=== PATIENT | female | born 1965 | race Two or more races ===

== ENCOUNTER 2024-06-26 17:29 | Inpatient (IN) | payer BC, SELFPAY ==
[2024-06-26 17:55] VITALS: BP 142/88; PULSE 91; RESP 18; TEMP 36.9; O2SAT 97; BMI 36.6
--- NOTE | 2024-06-26 17:58 | XR_ITS ---
Examination: Abdomen sonogram, Limited Date and time of exam: June 26, 2024 1926 hours INDICATIONS: Right upper abdominal pain and nausea beginning today Technique: Real-time pandya scale transabdominal sonographic images of the upper abdomen obtained. Findings: Normal gallbladder Normal common bile duct 0.3 cm Pancreatic head 2.8 cm Liver 15.1 cm fatty infiltration Normal hepatopedal portal venous flow Patent IVC IMPRESSION: Normal gallbladder. Fatty liver
--- NOTE | 2024-06-26 17:58 | XR_ITS ---
Examination: CT abdomen and pelvis without contrast. Coronal 3-D reconstructions. Sagittal 2-D reconstructions. Date and time of exam:June 26, 2024 1847 hours INDICATIONS: Epigastric pain beginning one week ago CTDI: vol (mGy): 15.6 DLP: (mGycm): 885 Technique: Axial images of the abdomen have been obtained, 3 mm slice thickness Intravenous contrast material has not been administered. Low dose protocols were performed. One or more of the following dose reduction techniques were used; automated exposure control, adjustment of the mA and/or KV according to patient size, use of iterative reconstruction technique. Findings: No focal liver or splenic lesions No gallstones No pancreatic mass No renal or ureteral calculi, no hydronephrosis Aorta normal size 12 mm fat-containing umbilical hernia Inflamed appendix medial and below the cecum, axial images 170 through 183 Trace free fluid in the pelvis No pelvic abscess Battery intact IMPRESSION: Acute appendicitis with localized perforation No pelvic abscess
--- NOTE | 2024-06-26 17:59 | PD.EDRME ---
Rapid Medical Screening Exam RME Arrival date/time: 06/26/24 17:29 58-year-old female presents to the emergency department for complaint of abdominal pain Chief Complaint: Abdominal Pain Time Seen by Provider: 06/26/24 17:42 Vital signs: Vital Signs Temperature 98.4 F 06/26/24 17:55 Pulse Rate 91 06/26/24 17:55 Respiratory Rate 18 06/26/24 17:55 Blood Pressure 142/88 H 06/26/24 17:55 Pulse Oximetry (%) 97 06/26/24 17:55 Oxygen Delivery Method Room Air 06/26/24 17:55
[2024-06-26 19:11] LABS: Basophils # (Auto) 0.1 Thou/mm3 (0.0-0.2); Basophils % (Auto) 0 % (0-2.5); Eosinophils # (Auto) 0.1 Thou/mm3 (0.0-0.5); Eosinophils % (Auto) 1 % (0-10); Hematocrit 38.6 % (36.0-46.0); Hemoglobin 13.1 g/dL (12.0-16.0); Immature Granulocytes % (Auto) 0 % (0-0); Immature Granulocytes Auto 0.04 Thou/mm3 (0.00-0.00); Lymphocytes # (Auto) 1.9 Thou/mm3 (1.0-4.8); Lymphocytes % (Auto) 15 % (10-50); Mean Corpuscular HGB Conc 33.9 g/dl (31.0-37.0); Mean Corpuscular Hemoglobin 26.8 pg (25.0-35.0); Mean Corpuscular Volume 79 fL (80-100); Monocytes # (Auto) 0.8 Thou/mm3 (0.0-0.8); Monocytes % (Auto) 7 % (0-12); Neutrophils # (Auto) 9.9 Thou/mm3 (1.8-7.7); Neutrophils % (Auto) 77 % (37-80); Nucleated Red Blood Cell % 0 /100 WBC (0); Platelet Count 282 Thou/mm3 (140-440); Red Blood Count 4.89 Miln/mm3 (4.00-5.20); White Blood Count 12.8 Thou/mm3 (3.6-11.0)
[2024-06-26 19:22] LABS: Collection Type, Urine Clean Catch
[2024-06-26 19:31] LABS: Alanine Aminotransferase 12 U/L (10-49); Albumin, Serum 4.4 gm/dL (3.5-5.0); Albumin/Globulin Ratio 1.5 (1.2-2.2); Alkaline Phosphatase 109 U/L (46-116); Anion Gap 11 (7-16); Aspartate Amino Transferase 16 U/L (0-34); BUN/Creatinine Ratio 14 Ratio (12-20); Bilirubin,Total 0.5 mg/dL (0.3-1.2); Blood Urea Nitrogen 17 mg/dL (9-23); Calcium 9.1 mg/dL (8.3-10.6); Calcium (Corrected) 9.1 mg/dL (8.5-10.1); Carbon Dioxide 29.1 mMol/L (20.0-31.0); Chloride 102 mMol/L (98-107); Creatinine (Component) 1.2 mg/dL (0.6-1.3); Estimated Creatinine Clearance 55.7 mL/min (>60); Glucose 109 mg/dL (74-106); Lipase 68 U/L (12-53); Osmolality,Calculated 285 (275-295); Potassium 3.5 mMol/L (3.4-5.1); Sodium 142 mMol/L (136-145); Total Protein 7.4 gm/dL (5.7-8.2); Troponin I < 0.020 ng/mL (0.0-0.045); eGFR 52 See Note
[2024-06-26 19:55] LABS: Bacteria,Urine Rare; Bilirubin,Urine Negative (Negative); Blood,Urine 3+ (Negative); Clarity,Urine Turbid (Clear/Hazy); Color,Urine Yellow (Lt Yel-Yel); Culture Indicated,Urine Not Indicated; Glucose, Urine Negative (Negative); Ketones,Urine Negative (Negative); Leukocyte Esterase,Urine Positive (Negative); Nitrite,Urine Negative (Negative); PH,Urine 7.5 (5.0-7.0); Protein,Urine Trace (Neg - Trace); RBC,Urine 58 /hpf (0-3); Specific Gravity,Urine 1.027 (1.001-1.035); Squamous Epithelial Cell,Urine 18 /hpf (0-5); WBC,Urine 7 /hpf (0-5)
--- NOTE | 2024-06-26 20:16 | PD.EDABDPN ---
ED Abdominal Pain RME/HPI General Chief Complaint: Abdominal Pain Stated complaint: SHARP EPIGASTRIC/ABD PAIN X 1 WK; VOMIT,DIARRHEA Time seen by provider: 06/26/24 17:42 Arrival date/time: 06/26/24 17:29 58-year-old female presents to the ED with a complaint of a 1 week history of abdominal pain that began in the periumbilical area, traveled down to the right lower quadrant and is now tender everywhere in her abdomen primarily in the epigastric area, with associated nausea, vomiting and now constipation. She was seen by her primary care physician at [facility] and diagnosed with food poisoning. She was given nausea medication as well as antidiarrheal medications. She got a little better but is now become worse. She had chills last week but none this week. It hurts to walk. Her last BM was yesterday. Her last oral intake was today around 2:30 PM. Source: patient and family Mode of arrival: ambulatory Limitations: no limitations RME / HPI RME / HPI narrative: 06/26/24 17:29 58-year-old female presents to the emergency department for complaint of abdominal pain Related Data Home Medications ?Medication ?Instructions ?Recorded ?Confirmed atorvastatin 20 mg tablet 20 mg PO QDAY 11/16/22 11/16/22 hydroxyzine HCl 25 mg tablet 25 mg PO QDAY 11/16/22 11/16/22 losartan 100 1 tab PO QDAY 11/16/22 11/16/22 mg-hydrochlorothiazide 25 mg tablet omeprazole 40 mg capsule,delayed 40 mg PO QDAY 11/16/22 11/16/22 release semaglutide 0.25 mg or 0.5 mg (2 0.5 mg subcut QWEEK 11/16/22 11/16/22 mg/3 mL) subcutaneous pen injector (Ozempic) sertraline 25 mg tablet 25 mg PO QDAY 11/16/22 11/16/22 Previous Rx's ?Medication ?Instructions ?Recorded loratadine 10 mg tablet 10 mg PO QDAY #30 tabs 01/22/23 montelukast 10 mg tablet 10 mg PO QDAY #30 tabs 01/22/23 (Singulair) Allergies Allergy/AdvReac Type Severity Reaction Status Date / Time No Known Allergies Allergy Verified 06/26/24 17:31 Review of Systems Review of Systems Systems Reviewed: All systems reviewed, normal except as documented Past Medical History Past Medical History NEUROLOGIC: Negative Neurological Disorders or Seizures CARDIAC: Positive Cardiac Disorders, Hypercholesterolemia and Hypertension; Negative Heart Murmur or Congestive Heart Failure RESPIRATORY: Negative Chronic Obstructive Pulmonary Disease (COPD) GASTROINTESTINAL: Negative Gastrointestinal Disorders GENITOURINARY: Negative Genitourinary Disorders or Renal Disease REPRODUCTIVE: Positive Previous Pregnancies MUSCULOSKELETAL: Negative Musculoskeletal Disorders ENDOCRINE: Positive Endocrine Disorders; Negative Diabetes Mellitus Type 1 or Diabetes Mellitus Type 2 (borderline diabetic) HEMATOLOGIC: Negative Blood Disorders OTHER HISTORY: Positive Chicken Pox; Negative Blood Transfusions, Anesthesia Reactions or Cancer Family History FAMILY HISTORY: Positive Family Cardiac Disorders and Family Cancer Surgical History SURGICAL: Positive Angiogram and Hysterectomy Social History SMOKING STATUS: Never smoker SUBSTANCE USE: does not use ED Exam Narrative Physical exam: Pleasant 58-year-old female, no acute distress, sitting up on gurney. Alert and oriented, lungs are clear, regular rate and rhythm without murmurs. Abdomen reveals hypoactive bowel sounds. She has tenderness to percussion and palpation in all quadrants as well as rebound and guarding. Positive psoas and obturator and positive heeltap. General Limitations: Present no limitations General appearance: Present alert and in no apparent distress Head Head exam: Present atraumatic and normal inspection Eye Eye exam: Present normal appearance; Absent scleral icterus or conjunctival injection ENT ENT exam: Present normal exam Neck Neck exam: Present normal inspection Chest Chest inspection: Present normal inspection and symmetric chest wall rise Respiratory Respiratory exam: Present normal lung sounds bilaterally; Absent respiratory distress Cardiovascular Cardiovascular exam: Present regular rate, normal rhythm and normal heart sounds; Absent systolic murmur Abdominal Exam Abdominal exam: Present soft, tenderness, guarding, rebound, hypoactive bowel sounds, psoas sign, obturator sign and heel tap sign; Absent distention or rigidity Abdominal tenderness: Present RUQ, RLQ, LUQ, LLQ, diffuse and moderate Rectal Exam Rectal exam: Present deferred Extremities Exam Extremities exam: Present normal inspection and full ROM Back Exam Back exam: Present normal inspection and full ROM; Absent CVA tenderness (R) or CVA tenderness (L) Neurological Exam Neurological exam: Present alert and oriented X3 Psychiatric Psychiatric exam: Present normal affect and normal mood Skin Skin exam: Present warm, dry, intact and normal color Course Orders Category Date Time Status CT abdomen pelvis wo con Stat Exams 06/26/24 17:58 Completed US gall bladder Stat Exams 06/26/24 17:58 Taken CBC Stat Lab 06/26/24 18:38 Completed Comprehensive Metabolic Panel Stat Lab 06/26/24 18:38 Completed Lipase Stat Lab 06/26/24 18:38 Completed Troponin I Stat Lab 06/26/24 18:38 Completed UA, C/S IF [Urinalysis, C/S if Indicated] Stat Lab 06/26/24 19:04 Completed Vital Signs Vital signs: Vital Signs Temperature 98.4 F 06/26/24 17:55 Pulse Rate 91 06/26/24 17:55 Respiratory Rate 18 06/26/24 17:55 Blood Pressure 142/88 H 06/26/24 17:55 Pulse Oximetry (%) 97 06/26/24 17:55 Oxygen Delivery Method Room Air 06/26/24 17:55 Discharge Plan Prescriptions/Referrals Prescriptions/Med Rec: No Action atorvastatin 20 mg tablet 20 mg PO QDAY Patient Comments: TAKE 1 TABLET BY MOUTH ONCE DAILY FOR 90 DAYS omeprazole 40 mg capsule,delayed release(DR/EC) 40 mg PO QDAY Patient Comments: TAKE 1 CAPSULE BY MOUTH ONCE DAILY 30 MINUTES BEFORE MORNING MEAL losartan-hydrochlorothiazide 100-25 mg tablet 1 tab PO QDAY Patient Comments: TAKE 1 TABLET BY MOUTH ONCE DAILY sertraline 25 mg tablet 25 mg PO QDAY Patient Comments: TAKE 1 TABLET BY MOUTH ONCE DAILY hydroxyzine HCl 25 mg tablet 25 mg PO QDAY Patient Comments: TAKE 1 TABLET BY MOUTH ONCE DAILY AT BEDTIME NEEDED Ozempic 0.25 mg or 0.5 mg (2 mg/3 mL) pen injector 0.5 mg SUBCUT QWEEK Patient Comments: INJECT 0.5 MG SUBCUTANEOUSLY ONCE A WEEK loratadine 10 mg tablet 10 mg PO QDAY Qty: 30 0RF montelukast [Singulair] 10 mg tablet 10 mg PO QDAY Qty: 30 0RF Referrals: Wilfrid Cole MD [Primary Care Provider] - In 1 week Patient/Caregiver Discharge Instructions Print Language: Lithuanian
[2024-06-26 21:04] VITALS: BP 174/83; PULSE 71; RESP 17; TEMP 36.9; O2SAT 96
[2024-06-26] MEDS: SODIUM CHLORIDE 0.9% 1000 ML 1,000 ML 125 ML IV (21:06)
[2024-06-26 21:37] LABS: Lactate (Lactic Acid) 0.7 mMol/L (0.4-2.0)
[2024-06-26] MEDS: metroNIDAZOLE/NS 500 MG IVPB 500 MG/100 ML BAG 200 MG IV (21:42)
--- NOTE | 2024-06-26 21:45 | PC.NURSE ---
Dr. Delgadillo at bedside speaking to patient.
--- NOTE | 2024-06-26 21:45 | ESHP_ITS ---
<Statement entered by Angelo Villavicencio MD - 06/26/24 23:36> I have discussed and was present for the essential components of the history, physical examination, diagnosis, and treatment plan with the resident. I agree with the patient's care as documented by the resident and amended herein by me. Angelo Villavicencio MD FACP. Documentation for date of: 06/26/24 HPI History of Present Illness History of present illness: 58 years old female patient with significant medical history for GERD, prediabetes, hypertension, depression and anxiety came into ED for abdominal pain. Pain started x 1 week ago with origin of periumbilical area, over time extended to right lower quadrant pain and now epigastric region. Patient also endorsed chills, nausea, vomiting and diarrhea. When symptoms initially started patient went to PCP at which point she was diagnosed with gastritis and was sent home with antiemesis and antidiarrheal medication. Over time pain intensity has increased now patient also experiencing pain while walking. Per patient last episode of chills and nausea/vomiting was x 4 days ago. Last bowel movement was yesterday and last p.o. intake was this afternoon. In ED vitals were significant for BP 142/88. Labs were significant for WBC 12.8, [employer] 1.2, EGFR 52, glucose 109, lipase 68, CRP/lactic acid/procalcitonin are pending. Urinalysis indicated pH of 7.5, urine RBC 58, urine WBC 7, leukocyte esterase positive and rare bacteria. Gallbladder ultrasound was unremarkable. Abdomen/pelvis CT showed acute appendicitis with localized perforation. Patient recieved Rocephin and Metronidazole in ED. General surgeon Dr. Delgadillo was consulted, patient was switched to Zosyn per recc. Patient will be admitted for further management of appendicitis. Medical Hx: GERD, prediabetes, hypertension, anxiety Medications (need reconciliation): atorvastatin, hydroxyzine, loratadine, losartan-hctz, omeprazole, ozempic, sertraline Surgical Hx: total hysterectomy Family Hx: daughter breast cancer, mother osteosarcoma Allergies: NKDA Code Status: Full Code Review of Systems Review of Systems Systems Reviewed: All systems reviewed, normal except as documented Exam Vital Signs Temp Pulse Resp BP Pulse Ox O2 Del Method 98.5 F 71 17 174/83 H 96 Room Air 06/26/24 21:04 06/26/24 21:04 06/26/24 21:04 06/26/24 21:04 06/26/24 21:04 06/26/24 21:04 Narrative Exam Constitutional: well-developed, well-nourished, in mild distress, lying in bed HEENT: NCAT, EOMI, reactive round pupils b/l, patent nares b/l, moist mucous membranes Lung: CTAB, no wheezing, no rhonchi Heart: Regular S1S2, no murmurs, gallops, or rubs Abdomen: Soft, non-distended, RLQ and epigastric pain on palpation, Mcburney's point+, bowel sounds present Extremities: No cyanosis, clubbing, or edema, LE pulses present b/l Neurologic: No focal sensory or motor deficits noted, AOx3, appropriate affect Skin: Warm, dry, no lesions or rashes noted Results: Labs 06/26/24 18:38 06/26/24 18:38 Labs: Short CBC 06/26/24 Range/Units 18:38 WBC 12.8 H (3.6-11.0) Thou/mm3 Hgb 13.1 (12.0-16.0) g/dL Hct 38.6 (36.0-46.0) % Plt Count 282 (140-440) Thou/mm3 BMP 06/26/24 18:38 Sodium 142 Potassium 3.5 Chloride 102 Carbon Dioxide 29.1 BUN 17 Creatinine 1.2 Glucose 109 H Calcium 9.1 Cardiac Enzymes 06/26/24 Range/Units 18:38 Troponin I < 0.020 (0.0-0.045) ng/mL Liver Function 06/26/24 Range/Units 18:38 Total Bilirubin 0.5 (0.3-1.2) mg/dL AST 16 (0-34) U/L ALT 12 (10-49) U/L Alkaline Phosphatase 109 (46-116) U/L Albumin 4.4 (3.5-5.0) gm/dL Urine 06/26/24 Range/Units 19:04 Urine Color Yellow (Lt Yel-Yel) Urine Clarity Turbid A (Clear/Hazy) Urine pH 7.5 H (5.0-7.0) Ur Specific [place] 1.027 (1.001-1.035) Urine Protein Trace (Neg - Trace) Urine Glucose (UA) Negative (Negative) Quality Measures Quality Measures VTE prophylaxis Medications Home Medications and Allergies Home Medications ?Medication ?Instructions ?Recorded ?Confirmed ?Type atorvastatin 20 mg tablet 20 mg PO QDAY 11/16/2211/16 History hydroxyzine HCl 25 mg tablet 25 mg PO QDAY 11/16/22 History losartan 100 1 tab PO QDAY 11/16/2211/16 History mg-hydrochlorothiazide 25 mg tablet omeprazole 40 mg capsule,delayed 40 mg PO QDAY 3 11/16/22 History release semaglutide 0.25 mg or 0.5 mg (2 0.5 mg subcut QWEEK 1 11/16/22 History mg/3 mL) subcutaneous pen injector (Ozempic) sertraline 25 mg tablet 25 mg PO QDAY 11/16/2211/16 History Allergies Allergy/AdvReac Type Severity Reaction Status Date / Time No Known Allergies Allergy Verified 06/26/24 17:31 Visit Medications Acetaminophen (Acetaminophen 325 Mg Tablet) 650 mg PO Q6H PRN PRN Reason: Fever >101.5 Stop: 07/26/24 21:20 Albuterol/Ipratropium (Albuterol/Ipratropium (Duoneb) Rt Wendy 3 Ml Nebu) 3 ml INH Q6HRRT PRN PRN Reason: wheezing Stop: 07/27/24 00:59 Sodium Chloride (Ns) 1,000 mls @ 125 mls/hr IV .Q8H ONE Stop: 06/27/24 04:20 Last Admin: 06/26/24 21:06 Dose: 125 mls/hr Piperacillin/Tazobactam/Dextrose (Zosyn) 50 mls @ 100 mls/hr IV Q8HR NEO Stop: 07/03/24 21:43 Ondansetron HCl (Ondansetron Inj 2 Mg/Ml Inj 2 Ml) 4 mg IV Q6H PRN; Protocol PRN Reason: NAUSEA OR VOMITING Stop: 07/26/24 21:20 Discontinued Medications Ceftriaxone Sodium 2 gm/ (Sodium Chloride) 50 mls @ 100 mls/hr IV X1 ONE Stop: 06/26/24 20:54 Metronidazole (Flagyl 500 Mg Iv) 500 mg in 100 mls @ 200 mls/hr IV Q8HR NEO Stop: 07/03/24 20:24 Last Admin: 06/26/24 21:42 Dose: 200 mls/hr Ceftriaxone Sodium 2 gm/ (Sodium Chloride) 50 mls @ 100 mls/hr IV QDAY [facility] Stop: 07/04/24 08:59 Assessment & Plan Plan 58 years old female patient with significant medical history for GERD, prediabetes, hypertension, depression and anxiety came into ED for abdominal pain. Pain started x 1 week ago with origin of periumbilical area, over time extended to right lower quadrant pain and now epigastric region. Patient also endorsed chills, nausea, vomiting and diarrhea. Abdomen/pelvis CT showed acute appendicitis with localized perforation. General surgeon Dr. Delgadillo was consulted, patient will be admitted for further management of appendicitis. #Appendicitis with local perforation Patient with x 1 week of abdominal pain with associated symptoms of chills, nausea, vomiting Lab admission positive for leukocytosis Abdomen/pelvis CT indicative of appendicitis with local perforation Plan: -Admit to med-tele -Toradol for pain -IV antibiotics Zosyn started -Tylenol for fever as needed -N.p.o. -Maintenance IVF NS at 125 cc/hr -General surgeon Dr. Delgadillo consulted, recommendations are greatly appreciated # Hypertension Patient on home med losartan-HCTZ Plan: -Start losartan 100 mg daily -Start hydrochlorothiazide 25 mg daily -As needed hydralazine for SBP >170 #GERD Plan: -Pantoprazole 40 mg daily #Prediabetes Patient on home med Ozempic Plan: -Follow-up A1c -Consider starting SSI #Depression #Anxiety Patient on home med sertraline and hydroxyzine Plan: -Start home meds after reconciliation Health Maintenance Dispo: Patient admitted for appendicitis with local perforation, general surgeon consulted Diet: N.p.o. as possible surgery for DVT/PPx: SVC GI ppx: Pantoprazole 40 daily Lines: PIV Code Status: Full code This patient care was discussed with my attending Dr. Saud Macias MD PGY-2 Disclaimer: Minor errors in sharemilker may be present since this note was dictated by speech recognition software.
[2024-06-26 21:48] VITALS: RESP 96
--- NOTE | 2024-06-26 21:52 | PD.SURCONS ---
HPI Consult details Consult date: 06/26/24 Reason for consultation narrative: Abdominal pain of 1 week duration associated with nausea and vomiting and diarrhea no fever or chills History of present illness: Patient was experiencing this problem for 1 week and today the pain increased therefore she came to the emergency room. She has a history of diabetes hypertension hyperlipidemia Meds Home Medications and Allergies Home Medications ?Medication ?Instructions ?Recorded ?Confirmed ?Type atorvastatin 20 mg tablet 20 mg PO QDAY 11/16/22 11/16/22 History hydroxyzine HCl 25 mg tablet 25 mg PO QDAY 11/16/22 11/16/22 History losartan 100 1 tab PO QDAY 11/16/22 11/16/22 History mg-hydrochlorothiazide 25 mg tablet omeprazole 40 mg capsule,delayed 40 mg PO QDAY 11/16/22 11/16/22 History release semaglutide 0.25 mg or 0.5 mg (2 0.5 mg subcut QWEEK 11/16/22 11/16/22 History mg/3 mL) subcutaneous pen injector (MoveEZ) sertraline 25 mg tablet 25 mg PO QDAY 11/16/22 11/16/22 History Allergies Allergy/AdvReac Type Severity Reaction Status Date / Time No Known Allergies Allergy Verified 06/26/24 17:31 Exam Vital Signs Temp Pulse Resp BP Pulse Ox O2 Del Method 98.5 F 71 17 174/83 H 96 Room Air 06/26/24 21:04 06/26/24 21:04 06/26/24 21:04 06/26/24 21:04 06/26/24 21:04 06/26/24 21:04 Narrative Exam Examination revealed normal vital signs. Patient is slightly obese Routine Abdominal Exam Comments: Abdominal examination shows tenderness over the McBurney's point as well as in the epigastric region Results Results: Laboratory Laboratory Narrative: WBC is mildly elevated Results: Imaging Imaging narrative: CT scan shows acute appendicitis with possible perforation that is localized Assessment & Plan Additional Assessment Additional comments: Impression: Delayed appendicitis Diabetes Hypertension Plan Plan: We will start her with antibiotics and treat her nonoperatively. If she improves we can discharge her after few days of antibiotics. Otherwise she will require laparoscopic appendectomy. Thank you very much
[2024-06-26 21:53] LABS: Prothrombin Time 11.2 Seconds (9.0-12.2)
[2024-06-26] MEDS: KETOROLAC INJ 30 MG/ML VIAL IVP (21:57)
[2024-06-26 22:44] VITALS: BP 152/83; PULSE 67; RESP 18; TEMP 37; O2SAT 95
[2024-06-26 22:46] VITALS: PULSE 69; RESP 21; RESP 95; O2SAT 95
[2024-06-26] MEDS: PIPER/TAZO 3.375 GM PREMIX 3.375 GM/50 ML BAG IV (22:46)
[2024-06-26 23:06] LABS: Procalcitonin 0.13 ng/ml (0.0-0.49)
[2024-06-27] VITALS (10 sets, daily range): BP systolic 119–147; BP diastolic 56–85; PULSE 61–104; RESP 17–97; TEMP 36.1–36.5; O2SAT 93–97; BMI 36.3
--- NOTE | 2024-06-27 03:00 | PC.NURSE ---
Report called to JOSIAS Neal in Med/Surg.
--- NOTE | 2024-06-27 04:00 | PC.NURSE ---
Pt and spouse noted they are not certain of doses and frequencies of the home medications being taken. Spouse noted he would bring them in later today. Will relay info to day RN to f/u with reconciliation.
[2024-06-27 05:42] LABS: Basophils % (Auto) 0 % (0-2.5); Eosinophils # (Auto) 0.1 Thou/mm3 (0.0-0.5); Eosinophils % (Auto) 1 % (0-10); Immature Granulocytes % (Auto) 0 % (0-0); Immature Granulocytes Auto 0.05 Thou/mm3 (0.00-0.00); Lymphocytes # (Auto) 1.8 Thou/mm3 (1.0-4.8); Lymphocytes % (Auto) 16 % (10-50); Mean Corpuscular HGB Conc 33.3 g/dl (31.0-37.0); Mean Corpuscular Hemoglobin 26.4 pg (25.0-35.0); Mean Corpuscular Volume 79 fL (80-100); Monocytes # (Auto) 0.7 Thou/mm3 (0.0-0.8); Monocytes % (Auto) 6 % (0-12); Neutrophils # (Auto) 8.4 Thou/mm3 (1.8-7.7); Neutrophils % (Auto) 76 % (37-80); Nucleated Red Blood Cell % 0 /100 WBC (0); Platelet Count 269 Thou/mm3 (140-440); RDW Standard Deviation 40.6 fL (36.4-46.3); Red Blood Count 4.92 Miln/mm3 (4.00-5.20); White Blood Count 11.1 Thou/mm3 (3.6-11.0)
[2024-06-27] MEDS: KETOROLAC INJ 30 MG/ML VIAL IVP (05:47)
[2024-06-27] MEDS: PIPER/TAZO 3.375 GM PREMIX 3.375 GM/50 ML BAG IV ×2 (06:06→21:09)
[2024-06-27 06:15] LABS: Alanine Aminotransferase 12 U/L (10-49); Albumin, Serum 4.2 gm/dL (3.5-5.0); Albumin/Globulin Ratio 1.4 (1.2-2.2); Alkaline Phosphatase 98 U/L (46-116); Anion Gap 10 (7-16); Aspartate Amino Transferase 16 U/L (0-34); BUN/Creatinine Ratio 16 Ratio (12-20); Bilirubin,Total 0.7 mg/dL (0.3-1.2); Blood Urea Nitrogen 14 mg/dL (9-23); Calcium 9.1 mg/dL (8.3-10.6); Calcium (Corrected) 9.1 mg/dL (8.5-10.1); Carbon Dioxide 28.2 mMol/L (20.0-31.0); Chloride 102 mMol/L (98-107); Creatinine (Component) 0.9 mg/dL (0.6-1.3); Estimated Creatinine Clearance 73.8 mL/min (>60); Globulin 2.9 gm/dL (2.3-3.5); Glucose 100 mg/dL (74-106); Magnesium 2.2 mg/dL (1.6-2.6); Osmolality,Calculated 279 (275-295); Phosphorous 4.2 mg/dL (2.4-5.1); Potassium 3.1 mMol/L (3.4-5.1); Sodium 140 mMol/L (136-145); Total Protein 7.1 gm/dL (5.7-8.2); eGFR > 60 See Note
[2024-06-27] MEDS: hydroCHLOROthiazide 12.5 MG CAPSULE 25 MG PO (08:15)
[2024-06-27] MEDS: PANTOPRAZOLE 40 MG TABLET PO (08:15)
[2024-06-27] MEDS: POTASSIUM CHLORIDE 20 mEq TABCR 40 MEQ PO (08:16)
[2024-06-27] MEDS: LOSARTAN POTASSIUM 25 MG TABLET 100 MG PO (08:16)
[2024-06-27 08:46] LABS: Glucose Estimated Average 105 mg/dL (80-131); Hemoglobin A1C 5.3 % Hgb (4.8-6.0)
[2024-06-27] MEDS: HYDROcodone/APAP 5/325 TABLET 1 TAB PO ×2 (10:40→21:07)
--- NOTE | 2024-06-27 11:21 | PD.RESPRO ---
Documentation for date of: 06/27/24 Subjective Subjective Interval history: Patient was seen examined at bedside this morning. No acute overnight events. General surgery saw the patient and decided that no surgery was indicated at this time unless no improvement. Exam Vital Signs Temp Pulse Resp BP Pulse Ox O2 Del Method FiO2 97.3 F 65 17 128/76 93 L Room Air 77 06/27/24 08:00 06/27/24 08:16 06/27/24 08:00 06/27/24 08:16 06/27/24 08:00 06/27/24 08:00 06/27/24 07:20 Narrative Exam General: A/O x3, no acute distress, well-nourished, well-developed Eyes: PERRL, EOMI. Anicteric, vision grossly intact. Ears: No ear pain, no ear discharge, Hearing grossly intact. Nose: No nasal discharge. Mouth/Throat: Moist mucous membranes, no redness, no lesions. Neck: Neck supple, non-tender, no cervical lymphadenopathy. Lungs: Clear JEFE to auscultation and percussion, No accessory muscle use. Cardio: Normal S1/S2, regular rhythm, no murmurs, no JVD or carotid bruits. Abdomen: Soft, tender in RLQ with palpation, no palpable masses, peristalsis present, no guarding or rebound. Extremities: Symmetrical, no significant deformities, no peripheral edema , non-tender, peripheral pulses presents. Skin: No rashes, no lesions, warm to touch. Neuro: No focal neurological deficits. motor and sensory intact Psych: Cooperative, appropriate mood and effect. Objective Labs 06/27/24 05:14 06/27/24 05:14 Labs: Laboratory Results - last 24 hr 06/26/24 06/26/24 06/26/24 18:38 19:04 21:23 WBC 12.8 H RBC 4.89 Hgb 13.1 Hct 38.6 MCV 79 L MCH 26.8 MCHC 33.9 RDW Std Deviation 41.0 Plt Count 282 Neut % (Auto) 77 Lymph % (Auto) 15 George % (Auto) 7 Eos % (Auto) 1 Baso % (Auto) 0 Neut # (Auto) 9.9 H Lymph # (Auto) 1.9 George # (Auto) 0.8 Eos # (Auto) 0.1 Baso # (Auto) 0.1 Immature Gran # (Auto) 0.04 H Absolute Nucleated RBC 0.00 Immature Gran % 0 Nucleated RBC % 0 PT 11.2 INR 1.0 Sodium 142 Potassium 3.5 Chloride 102 Carbon Dioxide 29.1 Anion Gap 11 BUN 17 Creatinine 1.2 Estim Creat Clear Calc 55.7 L eGFR 52 L BUN/Creatinine Ratio 14 [address]ucose [address] Glu mg/dL Hemoglobin A1c Calculated Osmolality 285 Lactic Acid 0.7 Calcium 9.1 Corrected Calcium 9.1 Phosphorus Magnesium Total Bilirubin 0.5 AST 16 ALT 12 Alkaline Phosphatase 109 Troponin I < 0.020 C-Reactive Prot, Quant 3.0 H Total Protein 7.4 Albumin 4.4 Globulin 3.0 Albumin/Globulin Ratio 1.5 Lipase 68 H Procalcitonin 0.13 Ur Collection Type Clean Catch Urine Color Yellow Urine Clarity Turbid A Urine pH 7.5 H Ur Specific [place] 1.027 Urine Protein Trace Urine Glucose (UA) Negative Urine Ketones Negative Urine Blood 3+ A Urine Nitrite Negative Urine Bilirubin Negative Urine Urobilinogen (Auto) 8.0 Ur Leukocyte Esterase Positive Urine RBC 58 H Urine WBC 7 H Ur Squamous Epith Cells 18 H Urine Bacteria Rare Ur Culture Indicated? Not Indicated 06/27/24 05:14 WBC 11.1 H RBC 4.92 Hgb 13.0 Hct 39.0 MCV 79 L MCH 26.4 MCHC 33.3 RDW Std Deviation 40.6 Plt Count 269 Neut % (Auto) 76 Lymph % (Auto) 16 George % (Auto) 6 Eos % (Auto) 1 Baso % (Auto) 0 Neut # (Auto) 8.4 H Lymph # (Auto) 1.8 George # (Auto) 0.7 Eos # (Auto) 0.1 Baso # (Auto) 0.0 Immature Gran # (Auto) 0.05 H Absolute Nucleated RBC 0.00 Immature Gran % 0 Nucleated RBC % 0 PT INR Sodium 140 Potassium 3.1 L Chloride 102 Carbon Dioxide 28.2 Anion Gap 10 BUN 14 Creatinine 0.9 Estim Creat Clear Calc 73.8 eGFR > 60 BUN/Creatinine Ratio [address] Glu mg/dL 105 Hemoglobin A1c 5.3 Calculated Osmolality 279 Lactic Acid Calcium 9.1 Corrected Calcium 9.1 Phosphorus 4.2 Magnesium 2.2 Total Bilirubin 0.7 AST 16 ALT 12 Alkaline Phosphatase 98 Troponin I C-Reactive Prot, Quant Total Protein 7.1 Albumin 4.2 Globulin 2.9 Albumin/Globulin Ratio 1.4 Lipase Procalcitonin Ur Collection Type Urine Color Urine Clarity Urine pH Ur Specific [place] Urine Protein Urine Glucose (UA) Urine Ketones Urine Blood Urine Nitrite Urine Bilirubin Urine Urobilinogen (Auto) Ur Leukocyte Esterase Urine RBC Urine WBC Ur Squamous Epith Cells Urine Bacteria Ur Culture Indicated? Quality Measures Quality Measures VTE prophylaxis Assessment & Plan Assessment Current Active Medications: Generic Name Dose Route Start Last Admin Trade Name Freq PRN Reason Stop Dose Admin Acetaminophen 650 mg 06/27/24 10:01 Acetaminophen 325 Mg Tablet PO 07/26/24 21:20 Q6H PRN pain 1-3 and Fever >100.4 Hydrocodone Bitart/Acetaminophen 1 tab 06/27/24 10:01 06/27/24 10:40 Hydrocodone/Apap 5/325 Tablet PO 07/02/24 10:00 1 tab Q6HR PRN Administration PAIN SCALE 4-10(Mod-Sev Albuterol/Ipratropium 3 ml 06/26/24 21:21 Albuterol/Ipratropium (Duoneb) Rt Wendy 3 Ml Nebu INH 07/27/24 00:59 Q6HRRT PRN wheezing Hydrochlorothiazide 25 mg 06/27/24 09:00 06/27/24 08:15 Hydrochlorothiazide 12.5 Mg Capsule PO 07/27/24 08:59 25 mg QDAY NEO Administration Piperacillin/Tazobactam/Dextrose 3.375 gm in 50 mls @ 12.5 mls/hr 06/27/24 07:00 06/27/24 06:06 Zosyn IV 07/04/24 06:59 12.5 mls/hr Q8HR NEO Administration Losartan Potassium 100 mg 06/27/24 09:00 06/27/24 08:16 Losartan Potassium 25 Mg Tablet PO 07/27/24 08:59 100 mg QDAY NEO Administration Ondansetron HCl 4 mg 06/26/24 21:21 Ondansetron Inj 2 Mg/Ml Inj 2 Ml IV 07/26/24 21:20 Q6H PRN NAUSEA OR VOMITING Protocol Pantoprazole Sodium 40 mg 06/27/24 09:00 06/27/24 08:15 Pantoprazole 40 Mg Tablet PO 07/27/24 08:59 40 mg QDAY NEO Administration Plan 58-year-old female with past medical history of hypertension, prediabetes, GERD, depression, anxiety was admitted to the hospital on 06/26/2024 due to acute appendicitis with local perforation. #Appendicitis with local perforation Patient had pain for around 1 week prior to coming to the ED. Abdomen/pelvis CT showed appendicitis with local perforation WBC downtrending and no spikes in fever No surgery as of now as per general surgery Plan: Will continue with IV Zosyn for now Pain management with [facility]. General Surgery consulted, appreciate recommendations #Hypokalemia Potassium 3.1 today Plan: 40 mEq x 1 Will replete as necessary #Hx of hypertension and hyperlipidemia Continue hydrochlorothiazide 25 mg daily and losartan 100 mg daily Continue atorvastatin 20 mg at bedtime #Hx of GERD Continue pantoprazole 40 mg #Hx of prediabetes A1c 5.3 No need for ISS #Hx of depression and anxiety Continue hydroxyzine 25 mg at bedtime and sertraline 25 mg at bedtime Disposition: Patient admitted to telemetry. Diet: carb consistent GI prophylaxis: protonix DVT prophylaxis: SCDs Code: Full Case disclosed with Attending Dr. Rupesh Barcenas PGY1 Attending Provider Attestation/Addendum I attest that I was physically present for the evaluation, physical examination, lab and imaging review of the patient with the residents. I discussed the case with the residents and agree with the findings and plans of care as documented above. At bedside today, patient states she is feeling much better. Her pain has been well-controlled with analgesics. Tolerating diet well. Vital signs have been stable, lab results show improving WBC at 11.1 today. Noted to have potassium of 3.1, repleted accordingly. Continues to be on IV Zosyn, awaiting culture results. General surgery has been following closely, recommended conservative treatment, appreciate recommendations. Kamran Goddard MD
--- NOTE | 2024-06-27 15:14 | PC.SS ---
Patient Noy Sheets is a 58 Year old female admitted for Appendicitis. SS introduced and role. Patient reports she lives at home with her Tripp Sheets who she reports is her surrogate decision maker [phone]. Patient reports that prior to admission she was able to ambulate without any DME. Patient is able to perform all ADL's independently. Choice of pharmacy is [facility]. PCP is Wilfrid Cole. At time of discharge patient will return back home. will provide transportation. Discharge Plan: Home Next of kin: , Tripp Sheets
--- NOTE | 2024-06-27 16:40 | PD.SURPROG ---
Documentation for date of: 06/27/24 Subjective Subjective Brief History: Patient was experiencing this problem for 1 week and today the pain increased therefore she came to the emergency room. She has a history of diabetes hypertension hyperlipidemia Narrative: The patient is comfortable today compared to yesterday. She received 1 dose of Toradol. She is tolerating regular diet Exam Vital Signs Temp Pulse Resp BP Pulse Ox O2 Del Method FiO2 97.1 F 104 H 18 119/76 94 L Room Air 77 06/27/24 12:00 06/27/24 16:00 06/27/24 12:00 06/27/24 12:00 06/27/24 12:00 06/27/24 12:00 06/27/24 07:20 Her vital signs are normal Routine Abdominal Exam Comments: Abdominal examination shows less tenderness Results Results: Laboratory Laboratory Narrative: Laboratory results show slight improvement Assessment & Plan Assessment Additional comments: Impression: Perforated appendicitis responding to antibiotic therapy Plan Plan: We would defer surgery at this time continue antibiotic therapy
[2024-06-27] MEDS: ATORVASTATIN CALCIUM 20 MG TABLET PO (21:00)
[2024-06-27] MEDS: SERTRALINE HCL 25 MG TABLET PO (21:00)
[2024-06-27] MEDS: hydrOXYzine HCL 25 MG TABLET PO (21:00)
[2024-06-28] VITALS (13 sets, daily range): BP systolic 110–148; BP diastolic 29–82; PULSE 56–84; RESP 16–97; TEMP 36.2–36.4; O2SAT 94–98
[2024-06-28] MEDS: PIPER/TAZO 3.375 GM PREMIX 3.375 GM/50 ML BAG IV ×3 (05:28→21:42)
[2024-06-28 06:00] LABS: Basophils # (Auto) 0.1 Thou/mm3 (0.0-0.2); Basophils % (Auto) 1 % (0-2.5); Eosinophils # (Auto) 0.3 Thou/mm3 (0.0-0.5); Eosinophils % (Auto) 4 % (0-10); Hematocrit 35.2 % (36.0-46.0); Immature Granulocytes % (Auto) 0 % (0-0); Immature Granulocytes Auto 0.03 Thou/mm3 (0.00-0.00); Lymphocytes # (Auto) 1.8 Thou/mm3 (1.0-4.8); Lymphocytes % (Auto) 22 % (10-50); Mean Corpuscular HGB Conc 34.1 g/dl (31.0-37.0); Mean Corpuscular Hemoglobin 26.8 pg (25.0-35.0); Mean Corpuscular Volume 79 fL (80-100); Monocytes # (Auto) 0.6 Thou/mm3 (0.0-0.8); Monocytes % (Auto) 7 % (0-12); Neutrophils # (Auto) 5.6 Thou/mm3 (1.8-7.7); Neutrophils % (Auto) 67 % (37-80); Nucleated Red Blood Cell % 0 /100 WBC (0); Platelet Count 240 Thou/mm3 (140-440); RDW Standard Deviation 40.5 fL (36.4-46.3); Red Blood Count 4.47 Miln/mm3 (4.00-5.20); White Blood Count 8.4 Thou/mm3 (3.6-11.0)
[2024-06-28 06:37] LABS: Alanine Aminotransferase 11 U/L (10-49); Albumin, Serum 3.8 gm/dL (3.5-5.0); Albumin/Globulin Ratio 1.5 (1.2-2.2); Alkaline Phosphatase 92 U/L (46-116); Anion Gap 8 (7-16); Aspartate Amino Transferase 14 U/L (0-34); BUN/Creatinine Ratio 19 Ratio (12-20); Bilirubin,Total 0.5 mg/dL (0.3-1.2); Blood Urea Nitrogen 17 mg/dL (9-23); Calcium 8.6 mg/dL (8.3-10.6); Calcium (Corrected) 8.8 mg/dL (8.5-10.1); Carbon Dioxide 26.9 mMol/L (20.0-31.0); Chloride 108 mMol/L (98-107); Creatinine (Component) 0.9 mg/dL (0.6-1.3); Estimated Creatinine Clearance 73.8 mL/min (>60); Globulin 2.5 gm/dL (2.3-3.5); Glucose 102 mg/dL (74-106); Magnesium 2.1 mg/dL (1.6-2.6); Osmolality,Calculated 286 (275-295); Phosphorous 4.1 mg/dL (2.4-5.1); Potassium 3.7 mMol/L (3.4-5.1); Sodium 143 mMol/L (136-145); Total Protein 6.3 gm/dL (5.7-8.2); eGFR > 60 See Note
[2024-06-28] MEDS: hydroCHLOROthiazide 12.5 MG CAPSULE 25 MG PO (08:39)
[2024-06-28] MEDS: PANTOPRAZOLE 40 MG TABLET PO (08:39)
[2024-06-28] MEDS: POTASSIUM CHLORIDE 20 mEq TABCR PO (08:40)
[2024-06-28] MEDS: HYDROcodone/APAP 5/325 TABLET 1 TAB PO (08:40)
[2024-06-28] MEDS: LOSARTAN POTASSIUM 25 MG TABLET 100 MG PO (08:41)
--- NOTE | 2024-06-28 10:14 | PD.RESPRO ---
Documentation for date of: 06/28/24 Subjective Subjective Interval history: Patient was seen and examined at bedside this morning. WBCs have been downtrending and she has not spiked any fevers. General surgery stated that they would like to keep the patient for IV antibiotics. Patient did mention that she has been having some episode of diarrhea and today she only had 2, but no abdominal pain. Will continue to monitor. Exam Vital Signs Temp Pulse Resp BP Pulse Ox O2 Del Method FiO2 97.4 F 84 18 131/79 H 97 Room Air 84 06/28/24 07:31 06/28/24 08:41 06/28/24 07:37 06/28/24 08:41 06/28/24 07:37 06/28/24 07:31 06/28/24 07:22 Narrative Exam General: A/O x3, no acute distress, well-nourished, well-developed Eyes: PERRL, EOMI. Anicteric, vision grossly intact. Ears: No ear pain, no ear discharge, Hearing grossly intact. Nose: No nasal discharge. Mouth/Throat: Moist mucous membranes, no redness, no lesions. Neck: Neck supple, non-tender, no cervical lymphadenopathy. Lungs: Clear JEFE to auscultation and percussion, No accessory muscle use. Cardio: Normal S1/S2, regular rhythm, no murmurs, no JVD or carotid bruits. Abdomen: Soft, tender in RLQ with deep palpation, no palpable masses, peristalsis present, no guarding or rebound. Extremities: Symmetrical, no significant deformities, no peripheral edema , non-tender, peripheral pulses presents. Skin: No rashes, no lesions, warm to touch. Neuro: No focal neurological deficits. motor and sensory intact Psych: Cooperative, appropriate mood and effect. Objective Labs 06/28/24 05:08 06/28/24 05:08 Labs: Laboratory Results - last 24 hr 06/28/24 05:08 WBC 8.4 RBC 4.47 Hgb 12.0 Hct 35.2 L MCV 79 L MCH 26.8 MCHC 34.1 RDW Std Deviation 40.5 Plt Count 240 Neut % (Auto) 67 Lymph % (Auto) 22 [place] % (Auto) 7 Eos % (Auto) 4 Baso % (Auto) 1 Neut # (Auto) 5.6 Lymph # (Auto) 1.8 [place] # (Auto) 0.6 Eos # (Auto) 0.3 Baso # (Auto) 0.1 Immature Gran # (Auto) 0.03 H Absolute Nucleated RBC 0.00 Immature Gran % 0 Nucleated RBC % 0 Sodium 143 Potassium 3.7 D Chloride 108 H Carbon Dioxide 26.9 Anion Gap 8 BUN 17 Creatinine 0.9 Estim Creat Clear Calc 73.8 eGFR > 60 BUN/Creatinine Ratio 19 Glucose 102 Calculated Osmolality 286 Calcium 8.6 Corrected Calcium 8.8 Phosphorus 4.1 Magnesium 2.1 Total Bilirubin 0.5 AST 14 ALT 11 Alkaline Phosphatase 92 Total Protein 6.3 Albumin 3.8 Globulin 2.5 Albumin/Globulin Ratio 1.5 Quality Measures Quality Measures VTE prophylaxis Assessment & Plan Assessment Current Active Medications: Generic Name Dose Route Start Last Admin Trade Name Freq PRN Reason Stop Dose Admin Acetaminophen 650 mg 06/27/24 10:01 Acetaminophen 325 Mg Tablet PO 07/26/24 21:20 Q6H PRN pain 1-3 and Fever >100.4 Hydrocodone Bitart/Acetaminophen 1 tab 06/27/24 10:01 06/28/24 08:40 Hydrocodone/Apap 5/325 Tablet PO 07/02/24 10:00 1 tab Q6HR PRN Administration PAIN SCALE 4-10(Mod-Sev Albuterol/Ipratropium 3 ml 06/26/24 21:21 Albuterol/Ipratropium (Duoneb) Rt Wendy 3 Ml Nebu INH 07/27/24 00:59 Q6HRRT PRN wheezing Atorvastatin Calcium 20 mg 06/27/24 21:00 06/27/24 21:00 Atorvastatin Calcium 20 Mg Tablet PO 07/27/24 20:59 20 mg HS NEO Administration Hydrochlorothiazide 25 mg 06/27/24 09:00 06/28/24 08:39 Hydrochlorothiazide 12.5 Mg Capsule PO 07/27/24 08:59 25 mg QDAY NEO Administration Hydroxyzine HCl 25 mg 06/27/24 21:00 06/27/24 21:00 Hydroxyzine Hcl 25 Mg Tablet PO 07/27/24 20:59 25 mg HS NEO Administration Piperacillin/Tazobactam/Dextrose 3.375 gm in 50 mls @ 12.5 mls/hr 06/27/24 07:00 06/28/24 05:28 Zosyn IV 07/04/24 06:59 12.5 mls/hr Q8HR NEO Administration Losartan Potassium 100 mg 06/27/24 09:00 06/28/24 08:41 Losartan Potassium 25 Mg Tablet PO 07/27/24 08:59 100 mg QDAY NEO Administration Ondansetron HCl 4 mg 06/26/24 21:21 Ondansetron Inj 2 Mg/Ml Inj 2 Ml IV 07/26/24 21:20 Q6H PRN NAUSEA OR VOMITING Protocol Pantoprazole Sodium 40 mg 06/27/24 09:00 06/28/24 08:39 Pantoprazole 40 Mg Tablet PO 07/27/24 08:59 40 mg QDAY NEO Administration Sertraline HCl 25 mg 06/27/24 21:00 06/27/24 21:00 Sertraline Hcl 25 Mg Tablet PO 07/27/24 20:59 25 mg HS NEO Administration Plan 58-year-old female with past medical history of hypertension, prediabetes, GERD, depression, anxiety was admitted to the hospital on 06/26/2024 due to acute appendicitis with local perforation. #Appendicitis with local perforation #Diarrhea Patient had pain for around 1 week prior to coming to the ED. Abdomen/pelvis CT showed appendicitis with local perforation WBC downtrending and no spikes in fever No surgery as of now as per general surgery Patient having some diarrhea likely due to Abx Plan: Will continue with IV Zosyn for now Pain management with [facility]. General Surgery consulted, appreciate recommendations #Hx of hypertension and hyperlipidemia Continue hydrochlorothiazide 25 mg daily and losartan 100 mg daily Continue atorvastatin 20 mg at bedtime #Hx of GERD Continue pantoprazole 40 mg #Hx of prediabetes A1c 5.3 No need for ISS #Hx of depression and anxiety Continue hydroxyzine 25 mg at bedtime and sertraline 25 mg at bedtime #Hypokalemia, resolved Disposition: Possible DC in next 24-48hrs Diet: carb consistent GI prophylaxis: protonix DVT prophylaxis: SCDs Code: Full Case disclosed with Attending Dr. Rupesh Barcenas PGY1 Attending Provider Attestation/Addendum I attest that I was physically present for the evaluation, physical examination, lab and imaging review of the patient with the residents. I discussed the case with the residents and agree with the findings and plans of care as documented above. At bedside today, patient states she is feeling well and does not have any new complaints. Vital signs have been stable except for mild hypertension. WBC count has been downtrending. Rest of the labs are stable. Continues to be on IV antibiotics. General surgery following closely, appreciate recommendations. Awaiting culture results. Anticipate discharge in 24 hours. Kamran Goddard MD
--- NOTE | 2024-06-28 13:17 | PC.SS ---
Rounding: One more day of IV ABX, poss DC tomorrow back home 06/29
[2024-06-28] MEDS: ACETAMINOPHEN 325 MG TABLET 650 MG PO (13:38)
--- NOTE | 2024-06-28 19:54 | PD.SURPROG ---
Documentation for date of: 06/28/24 Subjective Subjective Brief History: Patient was experiencing this problem for 1 week and today the pain increased therefore she came to the emergency room. She has a history of diabetes hypertension hyperlipidemia Narrative: The patient is feeling better today. She has not had any increase in the intensity of the pain. She is actually not having any pain but only tender when pressed upon. She is having regular bowel movements and tolerating the diet Exam Vital Signs Temp Pulse Resp BP Pulse Ox O2 Del Method FiO2 97.5 F 56 L 18 142/78 H 97 Room Air 84 06/28/24 15:49 06/28/24 16:00 06/28/24 15:49 06/28/24 15:49 06/28/24 15:49 06/28/24 15:49 06/28/24 07:22 Her vital signs are normal Routine Abdominal Exam Comments: Abdominal examination shows mild right lower quadrant tenderness which is localized over the McBurney's point but no signs of rigidity or rebound tenderness Results Results: Laboratory Laboratory Narrative: WBC is returning to normal Assessment & Plan Assessment Additional comments: Impression: Satisfactory response to antibiotic therapy for acute appendicitis, delayed Plan Plan: We shall discharge her home tomorrow on oral antibiotics and then I will follow her in my office in a couple of weeks
[2024-06-28] MEDS: ATORVASTATIN CALCIUM 20 MG TABLET PO (20:19)
[2024-06-28] MEDS: hydrOXYzine HCL 25 MG TABLET PO (20:20)
[2024-06-28] MEDS: SERTRALINE HCL 25 MG TABLET PO (20:20)
[2024-06-29] VITALS: BP 130/63; PULSE 53; PULSE 68; RESP 18; TEMP 36.4; O2SAT 96
[2024-06-29 04:00] VITALS: BP 130/76; PULSE 61; PULSE 63; RESP 18; TEMP 36.4; O2SAT 95
[2024-06-29] MEDS: PIPER/TAZO 3.375 GM PREMIX 3.375 GM/50 ML BAG IV (05:36)
[2024-06-29 06:13] LABS: Basophils % (Auto) 1 % (0-2.5); Eosinophils # (Auto) 0.4 Thou/mm3 (0.0-0.5); Eosinophils % (Auto) 6 % (0-10); Hematocrit 37.2 % (36.0-46.0); Hemoglobin 12.3 g/dL (12.0-16.0); Immature Granulocytes % (Auto) 0 % (0-0); Immature Granulocytes Auto 0.03 Thou/mm3 (0.00-0.00); Lymphocytes # (Auto) 1.7 Thou/mm3 (1.0-4.8); Lymphocytes % (Auto) 24 % (10-50); Mean Corpuscular HGB Conc 33.1 g/dl (31.0-37.0); Mean Corpuscular Hemoglobin 26.7 pg (25.0-35.0); Mean Corpuscular Volume 81 fL (80-100); Monocytes # (Auto) 0.5 Thou/mm3 (0.0-0.8); Monocytes % (Auto) 8 % (0-12); Neutrophils # (Auto) 4.2 Thou/mm3 (1.8-7.7); Neutrophils % (Auto) 61 % (37-80); Nucleated Red Blood Cell % 0 /100 WBC (0); Platelet Count 260 Thou/mm3 (140-440); RDW Standard Deviation 41.1 fL (36.4-46.3)
[2024-06-29 06:46] LABS: Alanine Aminotransferase 11 U/L (10-49); Albumin, Serum 3.8 gm/dL (3.5-5.0); Albumin/Globulin Ratio 1.5 (1.2-2.2); Alkaline Phosphatase 95 U/L (46-116); Anion Gap 9 (7-16); Aspartate Amino Transferase 16 U/L (0-34); BUN/Creatinine Ratio 19 Ratio (12-20); Bilirubin,Total 0.4 mg/dL (0.3-1.2); Blood Urea Nitrogen 17 mg/dL (9-23); Calcium 8.9 mg/dL (8.3-10.6); Calcium (Corrected) 9.1 mg/dL (8.5-10.1); Carbon Dioxide 28.8 mMol/L (20.0-31.0); Chloride 106 mMol/L (98-107); Creatinine (Component) 0.9 mg/dL (0.6-1.3); Estimated Creatinine Clearance 73.8 mL/min (>60); Globulin 2.5 gm/dL (2.3-3.5); Glucose 106 mg/dL (74-106); Magnesium 1.9 mg/dL (1.6-2.6); Osmolality,Calculated 288 (275-295); Phosphorous 3.5 mg/dL (2.4-5.1); Sodium 144 mMol/L (136-145); Total Protein 6.3 gm/dL (5.7-8.2); eGFR > 60 See Note
[2024-06-29 08:00] VITALS: BP 130/81; PULSE 63; PULSE 87; RESP 16; TEMP 36; O2SAT 96
[2024-06-29 09:15] VITALS: PULSE 71; RESP 18; RESP 95; O2SAT 95
--- NOTE | 2024-06-29 09:32 | PD.SURPROG ---
Documentation for date of: 06/29/24 Subjective Subjective Brief History: Patient was experiencing this problem for 1 week and today the pain increased therefore she came to the emergency room. She has a history of diabetes hypertension hyperlipidemia Narrative: The patient has no pain in the abdomen and she is tolerating diet Exam Vital Signs Temp Pulse Resp BP Pulse Ox O2 Del Method FiO2 96.8 F 63 16 130/81 96 Room Air 84 06/29/24 08:00 06/29/24 08:00 06/29/24 08:00 06/29/24 08:00 06/29/24 08:00 06/29/24 08:00 06/28/24 07:22 Vital signs are normal Routine Abdominal Exam Comments: Abdominal examination shows mild tenderness in the right lower quadrant on deep palpation Assessment & Plan Assessment Additional comments: Impression: Satisfactory recovery with nonoperative treatment of appendicitis Plan Plan: We can discharge the patient today on oral antibiotics like Augmentin and I will follow her in 2 weeks in my office. We will decide about whether she should have an interval appendectomy later
[2024-06-29 09:34] VITALS: BP 123/66; PULSE 62
[2024-06-29] MEDS: LOSARTAN POTASSIUM 25 MG TABLET 100 MG PO (09:34)
[2024-06-29 09:36] VITALS: BP 123/66; PULSE 65
[2024-06-29] MEDS: PANTOPRAZOLE 40 MG TABLET PO (09:36)
[2024-06-29] MEDS: hydroCHLOROthiazide 12.5 MG CAPSULE 25 MG PO (09:36)
--- NOTE | 2024-06-29 12:00 | ESDS_ITS ---
Planned Discharge Date 06/29/24 DS: Providers Provider Date of admission: 06/26/24 21:21 Primary care physician: Wilfrid Cole MD Admitting Provider: Angelo Villavicencio MD Attending Provider on Admission: Kamran Goddard MD Consults: 06/26/24 21:26 Consult to General Surgery Stat Comment: appendicitis w/ local perf Consulting Provider: Awais House Attending Provider on DC: Kamran Goddard MD Discharging Provider: Kamran Goddard MD DS: Diagnosis Problem List Completed Was Problem List Reviewed/Reconciled?: Yes Hospital Course Hospital Course Hospital course: 58-year-old female with past medical history of hypertension, prediabetes, GERD, depression, anxiety was admitted to the hospital on 06/26/2024 due to acute appendicitis with local perforation. Initially patient came in hypertensive and afebrile. He came into the ED with complaints of 1 week of abdominal pain which progressively got worse. Initial labs revealing for leukocytosis (12.8), and otherwise unremarkable. Initial imaging included abdomen/pelvis CT which showed acute appendicitis with localized perforation and gallbladder ultrasound which showed fatty liver. Patient was seen by general surgeon who stated that the patient should be treated with IV antibiotics for now and no surgery was required at this time. Throughout the hospital stay patient remained stable with decrease in pain and diabetes down trended back to within normal limits and she did not spike any fevers. At the time of discharge patient was stable enough to be discharged back home with close follow-up visit with general surgeon and instructions to come back to the ER if you experience any fevers or increasing abdominal pain. Discharge plan: Please follow with your primary care physician within 1 week upon discharge Please follow-up with general surgeon Dr. Delgadillo in 1 to 2 weeks after discharge We have prescribed Augmentin twice daily for 5 more days. Please continue taking all home medications as prescribed Please come back to the ER if abdominal pain worsens you develop fevers or chills. Problem list: #Appendicitis with local perforation #Hypokalemia #Hx of hypertension and hyperlipidemia #Hx of GERD #Hx of prediabetes #Hx of depression and anxiety Case disclosed with Attending Dr. Rupesh Barcenas PGY1 Status at Discharge Overall status at discharge: patient is progressing back to baseline Time Spent with Patient Time attestation: Total time spent providing and/or coordinating discharge services:>35 min Time spent: Greater than 30 minutes Exam Vital Signs Temp Pulse Resp BP Pulse Ox O2 Del Method FiO2 96.8 F 65 16 123/66 96 Room Air 84 06/29/24 08:00 06/29/24 09:36 06/29/24 08:00 06/29/24 09:36 06/29/24 08:00 06/29/24 08:00 06/28/24 07:22 Narrative Exam General: A/O x3, no acute distress, well-nourished, well-developed Eyes: PERRL, EOMI. Anicteric, vision grossly intact. Ears: No ear pain, no ear discharge, Hearing grossly intact. Nose: No nasal discharge. Mouth/Throat: Moist mucous membranes, no redness, no lesions. Neck: Neck supple, non-tender, no cervical lymphadenopathy. Lungs: Clear JEFE to auscultation and percussion, No accessory muscle use. Cardio: Normal S1/S2, regular rhythm, no murmurs, no JVD or carotid bruits. Abdomen: Soft, tender in RLQ with deep palpation, no palpable masses, peristalsis present, no guarding or rebound. Extremities: Symmetrical, no significant deformities, no peripheral edema , non-tender, peripheral pulses presents. Skin: No rashes, no lesions, warm to touch. Neuro: No focal neurological deficits. motor and sensory intact Psych: Cooperative, appropriate mood and effect. Discharge Plan Plan Patient Disposition: HOME (Self Care) Care Plan Goals: Please follow with your primary care physician within 1 week upon discharge Please follow-up with general surgeon Dr. Delgadillo in 1 to 2 weeks after discharge We have prescribed Augmentin twice daily for 5 more days. Please continue taking all home medications as prescribed Please come back to the ER if abdominal pain worsens you develop fevers or chills. Prescriptions/Referrals Prescriptions/Med Rec: New amoxicillin-pot clavulanate 875-125 mg tablet 1 tab PO BID 4 Days Qty: 9 0RF Continued omeprazole 40 mg capsule,delayed release(DR/EC) 40 mg PO HS Patient Comments: TAKE 1 CAPSULE BY MOUTH ONCE DAILY 30 MINUTES BEFORE MORNING MEAL losartan-hydrochlorothiazide 100-25 mg tablet 1 tab PO QDAY Patient Comments: TAKE 1 TABLET BY MOUTH ONCE DAILY sertraline 25 mg tablet 25 mg PO HS Patient Comments: TAKE 1 TABLET BY MOUTH ONCE DAILY hydroxyzine HCl 25 mg tablet 25 mg PO HS Patient Comments: TAKE 1 TABLET BY MOUTH ONCE DAILY AT BEDTIME NEEDED Ozempic 0.25 mg or 0.5 mg (2 mg/3 mL) pen injector 0.5 mg SUBCUT QWEEK Patient Comments: INJECT 0.5 MG SUBCUTANEOUSLY ONCE A WEEK dapagliflozin propanediol [Farxiga] 10 mg tablet 10 mg PO DAILY Patient Comments: TAKE 1 TABLET BY MOUTH ONCE DAILY loratadine 10 mg tablet 10 mg PO QDAY PRN (Reason: allergy symptoms) Changed atorvastatin 20 mg tablet 20 mg PO HS Qty: 30 0RF Patient Comments: TAKE 1 TABLET BY MOUTH ONCE DAILY FOR 90 DAYS Referrals: Wilfrid Cole MD [Primary Care Provider] - Awais House MD [Physician] - Patient/Caregiver Discharge Instructions Other Discharge Activity Instructions:: Please follow with your primary care physician within 1 week upon discharge Please follow-up with general surgeon Dr. Delgadillo in 1 to 2 weeks after discharge We have prescribed Augmentin twice daily for 5 more days. Please continue taking all home medications as prescribed Please come back to the ER if abdominal pain worsens you develop fevers or chills. Education Materials: What Is Appendicitis? Print Language: Italian Stand Alone Forms: [facility]isha Award Info., Patient Portal Info Letter Discharge Order Discharge Orders: Discharge (Routine); Ordered 06/29/24 Ordered By: Anatoly Barcenas Quality Discharge Quality Measures VTE prophylaxis Attestestation MD Attestation I attest that I was physically present for the evaluation, physical examination, lab and imaging review of the patient with the residents. I discussed the case with the residents and agree with the findings and plans of care as documented above. At bedside today, patient states she is feeling well and does not have any complaints. Her pain has improved significantly. Has been tolerating diet, denies any nausea or vomiting. Vitals are stable, saturating well on room air. Lab results are also stable. Discussed with general surgery, agreed on discharging patient home on oral antibiotics. Patient is medically stable for discharge, recommended to follow-up with PCP and general surgery in 1 to 2 weeks of discharge. Kamran Goddard MD
== END 2024-06-29 11:28 | disposition home or self-care (01) | DRG 373 ==
LOC: SERX 18:03 → S3SX 06-27 06:08 → SERHOLD 06-27 06:08
PROVIDERS: Internal Medicine; Nurse Practitioner Primary Care; Physician Assistant; Admitting Provider Internal Medicine; Emergency Provider Emergency Medicine; PCP Family Medicine; Visit Provider Student in an Organized Health Care Education/Training Program
DX: K35.32 Acute appendicitis with perforation, localized peritonitis, and gangrene, without abscess (principal); K21.9 Gastro-esophageal reflux disease without esophagitis; E78.5 Hyperlipidemia, unspecified; I10 Essential (primary) hypertension; F32.A Depression, unspecified; K76.0 Fatty (change of) liver, not elsewhere classified; F41.9 Anxiety disorder, unspecified; K29.70 Gastritis, unspecified, without bleeding; E11.9 Type 2 diabetes mellitus without complications; E87.6 Hypokalemia; Z79.899 Other long term (current) drug therapy; Z90.710 Acquired absence of both cervix and uterus
CPT/HCPCS: 36415; 74176; 76705; 80053; 81001; 83036; 83605; 83690; 83735; 84100; 84145; 84484; 85025; 85610; 86140; 87040; 93225; 96365; 96367; 96375; 99285; J1885; J2543; J3490; J7030; A9270; J1836

== ENCOUNTER 2024-07-12 15:06 | Emergency (ER) | payer BC, SELFPAY ==
[2024-07-12 15:07] VITALS: BMI 36.1
[2024-07-12 15:40] VITALS: BP 125/79; PULSE 83; RESP 18; TEMP 36.7; O2SAT 97
--- NOTE | 2024-07-12 15:57 | XR_ITS ---
Examination: CT abdomen with intravenous contrast CT pelvis with intravenous contrast 2-D coronal reconstructions 2-D sagittal reconstructions Date and time of exam:2024 1841 hours Comparison June 26, 2024 INDICATIONS: Abdominal pain and nausea beginning 2 weeks ago, acute appendicitis on CT abdomen and pelvis June 26, 2024. CTDI: vol (mGy) 14.1 DLP: (mGycm) 700 Technique: Multiple axial sections of the abdomen and pelvis have been obtained. 64 slice high-resolution scanner used. 3 mm axial sections have been obtained, post intravenous injection 60 cc Isovue 370 2-D sagittal, coronal reconstructions obtained. Low dose protocols were performed. One or more of the following dose reduction techniques were used; automated exposure control, adjustment of the mA and/or KV according to patient size, use of iterative reconstruction technique. Findings: No focal liver or splenic lesion No gallstones No pancreatic edema No renal or ureteral calculi Again noted fat-containing abdominal hernia Aorta normal size The appendix is again noted below the cecum, coronal image 53 through 68, it is fluid-filled and measures up to 9 mm in thickness but appears less inflamed compared to the prior study No pelvic abscess The urinary bladder is intact IMPRESSION: The appendix is again noted below the cecum, fluid-filled and measuring up to 9 mm in thickness, but without definite periappendiceal inflammatory change The appearance should still be clinically correlated
--- NOTE | 2024-07-12 15:58 | PD.EDRME ---
Rapid Medical Screening Exam E Arrival date/time: 07/12/24 15:06 58-year-old female with a history of hyperlipidemia, hypertension, presents to the emergency room with a chief complaint of right lower quadrant abdominal pain and tenderness. Patient states she was admitted 2 weeks ago with appendicitis. They did not remove the appendix and instead treated with antibiotics. Today she saw her surgeon told her that she will need a CT scan of her abdomen and if her appendix is inflamed she will have it removed. I have greeted and performed a focused initial assessment of this patient. A comprehensive ED assessment and evaluation of the patient, analysis of all test results, and completion of the medical decision making process will be conducted by additional ED providers. Chief Complaint: Abdominal Pain Vital signs: Vital Signs Temperature 98.1 F 07/12/24 15:40 Pulse Rate 83 07/12/24 15:40 Respiratory Rate 18 07/12/24 15:40 Blood Pressure 125/79 07/12/24 15:40 Pulse Oximetry (%) 97 07/12/24 15:40 Oxygen Delivery Method Room Air 07/12/24 15:40 Vital signs reviewed by provider: Yes
[2024-07-12 16:57] LABS: Collection Type, Urine Clean Catch
[2024-07-12 17:02] LABS: Basophils % (Auto) 0 % (0-2.5); Eosinophils # (Auto) 0.8 Thou/mm3 (0.0-0.5); Eosinophils % (Auto) 7 % (0-10); Hematocrit 39.5 % (36.0-46.0); Hemoglobin 13.8 g/dL (12.0-16.0); Immature Granulocytes % (Auto) 0 % (0-0); Immature Granulocytes Auto 0.02 Thou/mm3 (0.00-0.00); Lymphocytes # (Auto) 1.7 Thou/mm3 (1.0-4.8); Lymphocytes % (Auto) 16 % (10-50); Mean Corpuscular HGB Conc 34.9 g/dl (31.0-37.0); Mean Corpuscular Hemoglobin 27.3 pg (25.0-35.0); Mean Corpuscular Volume 78 fL (80-100); Monocytes # (Auto) 0.7 Thou/mm3 (0.0-0.8); Monocytes % (Auto) 6 % (0-12); Neutrophils # (Auto) 7.7 Thou/mm3 (1.8-7.7); Neutrophils % (Auto) 70 % (37-80); Nucleated Red Blood Cell % 0 /100 WBC (0); Platelet Count 324 Thou/mm3 (140-440); RDW Standard Deviation 40.7 fL (36.4-46.3); Red Blood Count 5.05 Miln/mm3 (4.00-5.20); White Blood Count 10.9 Thou/mm3 (3.6-11.0)
[2024-07-12 17:17] LABS: Alanine Aminotransferase 14 U/L (10-49); Albumin, Serum 4.6 gm/dL (3.5-5.0); Albumin/Globulin Ratio 1.6 (1.2-2.2); Alkaline Phosphatase 119 U/L (46-116); Anion Gap 12 (7-16); BUN/Creatinine Ratio 29 Ratio (12-20); Bilirubin,Total 0.5 mg/dL (0.3-1.2); Blood Urea Nitrogen 26 mg/dL (9-23); Calcium 9.3 mg/dL (8.3-10.6); Calcium (Corrected) 9.3 mg/dL (8.5-10.1); Carbon Dioxide 27.9 mMol/L (20.0-31.0); Chloride 107 mMol/L (98-107); Creatinine (Component) 0.9 mg/dL (0.6-1.3); Estimated Creatinine Clearance 73.6 mL/min (>60); Globulin 2.8 gm/dL (2.3-3.5); Glucose 81 mg/dL (74-106); Lipase 60 U/L (12-53); Osmolality,Calculated 296 (275-295); Potassium 3.4 mMol/L (3.4-5.1); Sodium 147 mMol/L (136-145); Total Protein 7.4 gm/dL (5.7-8.2); eGFR > 60 See Note
[2024-07-12 17:22] LABS: Bacteria,Urine Rare; Bilirubin,Urine Negative (Negative); Blood,Urine Negative (Negative); Clarity,Urine Clear (Clear/Hazy); Color,Urine Yellow (Lt Yel-Yel); Glucose, Urine Trace (Negative); Ketones,Urine Negative (Negative); Leukocyte Esterase,Urine Positive (Negative); Nitrite,Urine Negative (Negative); PH,Urine 5.5 (5.0-7.0); Protein,Urine Trace (Neg - Trace); RBC,Urine 3 /hpf (0-3); Specific Gravity,Urine 1.036 (1.001-1.035); Squamous Epithelial Cell,Urine 5 /hpf (0-5); WBC,Urine 15 /hpf (0-5)
--- NOTE | 2024-07-12 19:41 | PD.EDABDPN ---
ED Abdominal Pain RME/HPI General Chief Complaint: Abdominal Pain Stated complaint: RIGHT FLANK PAIN AND ABD PAIN Time seen by provider: 07/12/24 18:31 Arrival date/time: 07/12/24 15:06 RME / HPI RME / HPI narrative: 07/12/24 15:06 58-year-old female with a history of hyperlipidemia, hypertension, presents to the emergency room with a chief complaint of right lower quadrant abdominal pain and tenderness. Patient states she was admitted 2 weeks ago with appendicitis. They did not remove the appendix and instead treated with antibiotics. Today she saw her surgeon told her that she will need a CT scan of her abdomen and if her appendix is inflamed she will have it removed. I have greeted and performed a focused initial assessment of this patient. A comprehensive ED assessment and evaluation of the patient, analysis of all test results, and completion of the medical decision making process will be conducted by additional ED providers. This section includes all my notes and documentations, including HPI, PE, and ED course. Karson Hernandez MD HPI: 58 y/o female with recent Hx of Appendicitis and SHx of Hysterectomy presents to ED c/o right-sided abdominal pain x approximately 12 hours. Patient was diagnosed with appendicitis 2 weeks ago and treated conservatively by Dr. Delgadillo with antibiotics in the hospital for several days. She was discharged 1.5 weeks ago. No other complaints. ROS: All negative except as documented in HPI. Physical Exam: General: Alert and oriented. No acute distress when remaining still. Eyes: Conjunctivae and lids clear. ENT: No nasal congestion. Neck: Supple. Heart: RRR. Lungs: No respiratory distress. Good air movement. No rhonchi, wheezing, rales. Abdomen: Soft with right-sided tenderness, difficult to localize normal bowel sounds. No distension. No rebound or guarding. Back: No CVA tenderness. Skin: Warm and dry. Neuro: Alert and oriented X 3. I reviewed all diagnostic test results: My review of the CT report is: The appendix is again noted below the cecum, fluid-filled and measuring up to 9 mm in thickness, but without definite periappendiceal inflammatory change. Blood tests and urine tests unremarkable. At this point, diagnoses include: Chronic appendicitis I discussed the case with Dr. Delgadillo.? About the presentation and exam and diagnostics and treatments here.? And possible need of further care in the hospital.? Recommended Cipro and outpatient follow-up with them. Treatment here included: Zofran, Morphine, Cipro. Significant improvement noted. Recommended outpatient management, as recommended by Dr. Delgadillo. Based on my best medical judgment, made decision no further evaluation or treatment indicated at this time. Patient understands and agrees to the discharge instructions customized and printed, see below. Discharge Instructions from Dr. Hernandez printed for you: 1. Your case (including the blood test results and abdominal CT) was reviewed with your surgeon, Dr. Delgadillo. Your pain is due to healing chronic appendicitis. No emergent surgery or hospitalization needed. 2. Take Cipro as prescribed, recommended by Dr. Delgadillo. 3. Zofran for nausea/vomiting and Tylenol with codeine for severe pain. 4. See Dr. Delgadillo on 07/15/2024 for recheck and further care. To make sure there is no other serious intra-abdominal condition, ask for help with more investigation not available here in the ER. Such as EGD or scoping the stomach, colonoscopy or scoping the colon, and referral to see remote sensing advisor. 5. Seek immediate medical care with worsening or with any concerns. Karson Hernandez MD Related Data Home Medications ?Medication ?Instructions ?Recorded ?Confirmed hydroxyzine HCl 25 mg tablet 25 mg PO HS 11/16/22 06/27/24 losartan 100 1 tab PO QDAY 11/16/22 06/27/24 mg-hydrochlorothiazide 25 mg tablet omeprazole 40 mg capsule,delayed 40 mg PO HS 11/16/22 06/27/24 release semaglutide 0.25 mg or 0.5 mg (2 0.5 mg subcut QWEEK 11/16/22 06/27/24 mg/3 mL) subcutaneous pen injector (Ozempic) sertraline 25 mg tablet 25 mg PO HS 11/16/22 06/27/24 dapagliflozin propanediol 10 mg 10 mg PO DAILY 06/27/24 06/27/24 tablet (Farxiga) loratadine 10 mg tablet 10 mg PO QDAY PRN allergy symptoms 06/27/24 06/27/24 Previous Rx's ?Medication ?Instructions ?Recorded atorvastatin 20 mg tablet 20 mg PO HS #30 tabs 06/29/24 acetaminophen 300 mg-codeine 30 mg 2 tab PO Q8H PRN pain #20 tabs 07/12/24 tablet ciprofloxacin HCl 500 mg tablet 500 mg PO BID 14 days #28 tabs 07/12/24 (Cipro) ondansetron 4 mg disintegrating 4 mg PO TID PRN nausea and 07/12/24 tablet vomiting 30 days #10 tabs Allergies Allergy/AdvReac Type Severity Reaction Status Date / Time No Known Allergies Allergy Verified 07/12/24 15:09 Review of Systems Review of Systems Systems Reviewed: All systems reviewed, normal except as documented Past Medical History Past Medical History CARDIAC: Positive Hypercholesterolemia and Hypertension REPRODUCTIVE: Positive Previous Pregnancies ENDOCRINE: Positive Endocrine Disorders (Pre-DM) OTHER HISTORY: Positive Chicken Pox Family History FAMILY HISTORY: Positive Family Cardiac Disorders and Family Cancer Surgical History SURGICAL: Positive Angiogram and Hysterectomy ED Exam Narrative Physical exam: Refer to HPI above Course Quality Measures none Orders Category Date Time Status CT Screening NOW Care 07/12/24 15:[address] abdomen pelvis w con Stat Exams 07/12/24 15:57 Completed CBC Stat Lab 07/12/24 16:45 Completed CMP [Comprehensive Metabolic Panel] Stat Lab 07/12/24 16:45 Completed Lipase Stat Lab 07/12/24 16:45 Completed UA [Urinalysis] Stat Lab 07/12/24 16:36 Completed Urine Culture Stat Lab 07/12/24 16:36 Received CIPROFLOXACIN/D5w 400 MG IVPB [Cipro Ivpb] Med 07/12/24 20:25 Active 400 mg in 200 ml IV X1 Morphine Inj Med 07/12/24 19:39 Discontinued 6 mg IVP X1 ONE Ondansetron Inj [Zofran Inj] Med 07/12/24 19:39 Discontinued 4 mg IVP X1 ONE Vital Signs Vital signs: Vital Signs Temperature 98.1 F 07/12/24 15:40 Pulse Rate 83 07/12/24 15:40 Respiratory Rate 18 07/12/24 15:40 Blood Pressure 125/79 07/12/24 15:40 Pulse Oximetry (%) 97 07/12/24 15:40 Oxygen Delivery Method Room Air 07/12/24 15:40 Abdominal Pain MDM MDM Narrative MDM Narrative:: Scribe Attestation: Shana Sanders am scribing for and in the presence of Dr. Hernandez. Provider Notation: Although this document has been carefully reviewed, there may still be some phonetic and other typographical errors.? These errors are purely grammatical due to imperfections in the software program and should not be construed in any way to? compromise the substance of the patient's medical care during this visit. 58 y/o female with recent Hx of Appendicitis and SHx of Hysterectomy presents to ED c/o severe right-sided abdominal pain x approximately 12 hours. Patient was diagnosed with appendicitis 2 weeks ago and treated conservatively by Dr. Delgadillo with antibiotics. She was discharged 1.5 weeks ago.No other complaints. Patient data External records reviewed:: [facility] previous records (Reviewed prior ED records from 06/26/24. Patient was seen for Unspecified acute appendicitis.) Clinical information provided by:: patient Social determinants that could affect healthcare access:: none Patient has the following chronic illnesses:: Hypercholesterolemia, Hypertension, Pre-Diabetes How is presenting disease/condition affected by chronic disease/condition?: exacerbated by Evaluation data The following diagnostics were reviewed and interpreted by me:: lab results and radiology exam(s) Lab and/or radiology exams considered but not ordered:: None Interpretation Summary: I reviewed all diagnostic test results: My review of the CT report is: The appendix is again noted below the cecum, fluid-filled and measuring up to 9 mm in thickness, but without definite periappendiceal inflammatory change. Blood tests and urine tests unremarkable. Medications / Prescriptions Medications or Prescriptions considered but not ordered:: None Medication administrations:: Medication Administration History Ciprofloxacin/Dextrose (Cipro Ivpb) 400 mg in 200 mls @ 200 mls/hr IV X1 ONE Stop: 07/12/24 21:24 Discontinued Medications Morphine Sulfate (Morphine Sulf Inj 10 Mg/Ml Vial) 6 mg IVP X1 ONE Stop: 07/12/24 19:40 Last Admin: 07/12/24 20:13 Dose: 6 mg Documented By: Ondansetron HCl (Ondansetron Inj 2 Mg/Ml Inj 2 Ml) 4 mg IVP X1 ONE; Protocol Stop: 07/12/24 19:40 Last Admin: 07/12/24 20:10 Dose: 4 mg Documented By: Zoben, Morphine, Cipro Consultations Consultation(s) initiated? (list below): Yes Consultation #1 (Physician, Specialty, Details): I discussed the case with Dr. Delgadillo.? About the presentation and exam and diagnostics and treatments here.? And possible need of further care in the hospital.? Recommended Cipro and outpatient follow-up with them. Time: 19:40 Diagnosis Differential diagnosis abdominal pain: abdominal pain, acute appendicitis, calculus of kidney, constipation, diverticulitis, gastroenteritis, pancreatitis and small bowel obstruction Most likely diagnosis given after review of the tests above:: Chronic appendicitis Admission Indicated Admission indicated?: not indicated Explain why admission is indicated or not indicated:: I discussed the case with Dr. Delgadillo.? About the presentation and exam and diagnostics and treatments here.? And possible need of further care in the hospital.? Recommended Cipro and outpatient follow-up with them. Admission Request Was there a request for admission?: No Disposition Plan Disposition Plan: Discharge Discharge Attestation Discharge Attestation: The patient and all family members were given an opportunity to ask questions and understood the discharge instructions. Discharge instructions specifically effects, indications for sooner follow up or return to the emergency department, and the expected course of current diagnosis. Patient condition: Stable Discharge Plan Plan Patient Disposition: HOME (Self Care) Prescriptions/Referrals Prescriptions/Med Rec: New acetaminophen-codeine 300-30 mg tablet 2 tab PO Q8H MDD 6 PRN (Reason: pain) Qty: 20 0RF ciprofloxacin HCl [Cipro] 500 mg tablet 500 mg PO BID 14 Days Qty: 28 0RF ondansetron 4 mg tablet,disintegrating 4 mg PO TID PRN (Reason: nausea and vomiting) 30 Days Qty: 10 0RF No Action omeprazole 40 mg capsule,delayed release(DR/EC) 40 mg PO HS Patient Comments: TAKE 1 CAPSULE BY MOUTH ONCE DAILY 30 MINUTES BEFORE MORNING MEAL losartan-hydrochlorothiazide 100-25 mg tablet 1 tab PO QDAY Patient Comments: TAKE 1 TABLET BY MOUTH ONCE DAILY sertraline 25 mg tablet 25 mg PO HS Patient Comments: TAKE 1 TABLET BY MOUTH ONCE DAILY hydroxyzine HCl 25 mg tablet 25 mg PO HS Patient Comments: TAKE 1 TABLET BY MOUTH ONCE DAILY AT BEDTIME NEEDED Ozempic 0.25 mg or 0.5 mg (2 mg/3 mL) pen injector 0.5 mg SUBCUT QWEEK Patient Comments: INJECT 0.5 MG SUBCUTANEOUSLY ONCE A WEEK dapagliflozin propanediol [Farxiga] 10 mg tablet 10 mg PO DAILY Patient Comments: TAKE 1 TABLET BY MOUTH ONCE DAILY loratadine 10 mg tablet 10 mg PO QDAY PRN (Reason: allergy symptoms) atorvastatin 20 mg tablet 20 mg PO HS Qty: 30 0RF Patient Comments: TAKE 1 TABLET BY MOUTH ONCE DAILY FOR 90 DAYS Referrals: Wilfrid Cole MD [Primary Care Provider] - In 1 week Problem List Clinical Impression: Chronic appendicitis Patient/Caregiver Discharge Instructions Discharge Activity: activity as tolerated Education Materials: ED Abdominal Pain Appendx Poss Additional Instructions: Discharge Instructions from Dr. Hernandez printed for you: 1. Your case (including the blood test results and abdominal CT) was reviewed with your surgeon, Dr. Delgadillo. Your pain is due to healing chronic appendicitis. No emergent surgery or hospitalization needed. 2. Take Cipro as prescribed, recommended by Dr. Delgadillo. 3. Zofran for nausea/vomiting and Tylenol with codeine for severe pain. 4. See Dr. Delgadillo on 07/15/2024 for recheck and further care. To make sure there is no other serious intra-abdominal condition, ask for help with more investigation not available here in the ER. Such as EGD or scoping the stomach, colonoscopy or scoping the colon, and referral to see remote sensing advisor. 5. Seek immediate medical care with worsening or with any concerns. Print Language: Yoruba Stand Alone Forms: [employer]isha Award Info., Patient Portal Info Letter
[2024-07-12] MEDS: ONDANSETRON INJ 2 MG/ML INJ 2 ML 4 MG IVP (20:10)
[2024-07-12] MEDS: MORPHINE SULF INJ 10 MG/ML VIAL 6 MG IVP (20:13)
[2024-07-12] MEDS: CIPROFLOXACIN/D5w 400 MG IVPB 400 MG/200 ML BAG 200 MG IV (21:08)
[2024-07-13 00:19] VITALS: BP 122/82; PULSE 77
== END 2024-07-13 00:19 | disposition home or self-care (01) ==
PROVIDERS: Nurse Practitioner Family; Emergency Provider Emergency Medicine; PCP Family Medicine
DX: K36 Other appendicitis (principal)
CPT/HCPCS: 36415; 74177; 80053; 81001; 83690; 85025; 87077; 87086; 87186; 96365; 96366; 96375; 99285; A4649; J0744; J2270; J2405; Q9967

== ENCOUNTER 2024-08-27 18:32 | Emergency (ER) | payer BC, SELFPAY ==
[2024-08-27 19:11] VITALS: BP 153/94; PULSE 78; RESP 17; TEMP 36.7; O2SAT 97
--- NOTE | 2024-08-27 19:20 | XR_ITS ---
Examination: CT abdomen and pelvis without contrast. Coronal 3-D reconstructions. Sagittal 2-D reconstructions. Date and time of exam:August 27, 2024 1933 hours INDICATIONS: Right flank pain beginning 2 days ago CTDI: vol (mGy): 14.7 DLP: (mGycm): 839. Technique: Axial images of the abdomen have been obtained, 3 mm slice thickness Intravenous contrast material has not been administered. Low dose protocols were performed. One or more of the following dose reduction techniques were used; automated exposure control, adjustment of the mA and/or KV according to patient size, use of iterative reconstruction technique. Findings: No focal liver or splenic lesion No gallstones No pancreatic mass No renal or ureteral calculi, no hydronephrosis Aorta normal size 20 mm fat-containing umbilical hernia Normal appendix Colonic diverticulosis No bladder mass IMPRESSION: No renal or ureteral calculi, no hydronephrosis Normal appendix. No bladder mass or bladder calculi
--- NOTE | 2024-08-27 19:21 | PD.EDRME ---
Rapid Medical Screening Exam [facility] Arrival date/time: 08/27/24 18:32 59F with history of DM, HTN, and psych presents to ED with 2 days of R flank pain that radiates forward, as well as N/V. Patient recently had appendicitis that was treated non-operatively. Chief Complaint: Back Pain/Injury Vital signs: Vital Signs Temperature 98.0 F 08/27/24 19:11 Pulse Rate 78 08/27/24 19:11 Respiratory Rate 17 08/27/24 19:11 Blood Pressure 153/94 H 08/27/24 19:11 Pulse Oximetry (%) 97 08/27/24 19:11 Oxygen Delivery Method Room Air 08/27/24 19:11
[2024-08-27 19:45] LABS: Basophils # (Auto) 0.0 Thou/mm3 (0.0-0.2); Basophils % (Auto) 0 % (0-2.5); Eosinophils # (Auto) 0.1 Thou/mm3 (0.0-0.5); Eosinophils % (Auto) 1 % (0-10); Hematocrit 41.2 % (36.0-46.0); Hemoglobin 13.4 g/dL (12.0-16.0); Immature Granulocytes Auto 0.02 Thou/mm3 (0.00-0.00); Lymphocytes # (Auto) 1.9 Thou/mm3 (1.0-4.8); Lymphocytes % (Auto) 18 % (10-50); Mean Corpuscular HGB Conc 32.5 g/dl (31.0-37.0); Mean Corpuscular Hemoglobin 27.0 pg (25.0-35.0); Mean Corpuscular Volume 83 fL (80-100); Monocytes # (Auto) 0.7 Thou/mm3 (0.0-0.8); Monocytes % (Auto) 6 % (0-12); Neutrophils # (Auto) 8.0 Thou/mm3 (1.8-7.7); Neutrophils % (Auto) 74 % (37-80); Nucleated Red Blood Cell # 0.00 Thou/mm3 (0.00-0.00); Nucleated Red Blood Cell % 0 /100 WBC (0); Platelet Count 268 Thou/mm3 (140-440); RDW Standard Deviation 42.8 fL (36.4-46.3); Red Blood Count 4.96 Miln/mm3 (4.00-5.20); White Blood Count 10.7 Thou/mm3 (3.6-11.0)
[2024-08-27 19:48] LABS: Collection Type, Urine Clean Catch
[2024-08-27] MEDS: ONDANSETRON ODT 4 MG TABRAP PO (19:50)
[2024-08-27] MEDS: KETOROLAC INJ 60 MG/2 ML VIAL IM (19:51)
[2024-08-27 19:55] LABS: Bilirubin,Urine Negative (Negative); Blood,Urine Negative (Negative); Clarity,Urine Clear (Clear/Hazy); Color,Urine Yellow (Lt Yel-Yel); Glucose, Urine Negative (Negative); Ketones,Urine Negative (Negative); Leukocyte Esterase,Urine Positive (Negative); Nitrite,Urine Negative (Negative); PH,Urine 6.0 (5.0-7.0); Protein,Urine Trace (Neg - Trace); RBC,Urine 10 /hpf (0-3); Specific Gravity,Urine 1.034 (1.001-1.035); Squamous Epithelial Cell,Urine 2 /hpf (0-5); Urobilinogen,Urine Negative mg/dL (0.0-1.0); WBC,Urine 19 /hpf (0-5)
[2024-08-27 20:05] LABS: Culture Indicated,Urine Yes
[2024-08-27 20:26] LABS: Alanine Aminotransferase 12 U/L (10-49); Albumin, Serum 4.3 gm/dL (3.5-5.0); Albumin/Globulin Ratio 1.5 (1.2-2.2); Alkaline Phosphatase 118 U/L (46-116); Anion Gap 9 (7-16); Aspartate Amino Transferase 18 U/L (0-34); BUN/Creatinine Ratio 13 Ratio (12-20); Bilirubin,Total 0.4 mg/dL (0.3-1.2); Blood Urea Nitrogen 13 mg/dL (9-23); Calcium 9.3 mg/dL (8.3-10.6); Calcium (Corrected) 9.3 mg/dL (8.5-10.1); Carbon Dioxide 28.0 mMol/L (20.0-31.0); Chloride 106 mMol/L (98-107); Creatinine (Component) 1.0 mg/dL (0.6-1.3); Globulin 2.8 gm/dL (2.3-3.5); Glucose 99 mg/dL (74-106); Lipase 39 U/L (12-53); Osmolality,Calculated 285 (275-295); Potassium 3.7 mMol/L (3.4-5.1); Sodium 143 mMol/L (136-145); Total Protein 7.1 gm/dL (5.7-8.2); eGFR > 60 See Note
[2024-08-27 22:42] VITALS: BP 145/80; PULSE 62; RESP 18; TEMP 36.7; O2SAT 97
--- NOTE | 2024-08-27 23:03 | PD.EDBACK ---
ED Back Injury Pain RME/HPI General Chief Complaint: Back Pain/Injury Stated Complaint: Right side lower back pain radiates forward Time Seen by Provider: 08/27/24 22:57 Arrival date/time: 08/27/24 18:32 Limitations: no limitations RME / HPI RME / HPI Narrative: 59-year-old female with history of hypertension, hyperlipidemia, anxiety, and diabetes here today with a 2-day history of right-sided low back pain. She states initially she had mild nausea and had 1 or 2 episodes of emesis. That has since resolved. She denies any diarrhea. Denies any fevers or chills. She denies any falls or injuries. Has no rectal paresthesias. No loss of strength. She is self ambulating. She has no other acute complaints or concerns. Related Data Home Medications ?Medication ?Instructions ?Recorded ?Confirmed hydroxyzine HCl 25 mg tablet 25 mg PO HS 11/16/22 06/27/24 losartan 100 1 tab PO QDAY 11/16/22 06/27/24 mg-hydrochlorothiazide 25 mg tablet omeprazole 40 mg capsule,delayed 40 mg PO HS 11/16/22 06/27/24 release semaglutide 0.25 mg or 0.5 mg (2 0.5 mg subcut QWEEK 11/16/22 06/27/24 mg/3 mL) subcutaneous pen injector (Ozempic) sertraline 25 mg tablet 25 mg PO HS 11/16/22 06/27/24 dapagliflozin propanediol 10 mg 10 mg PO DAILY 06/27/24 06/27/24 tablet (Farxiga) loratadine 10 mg tablet 10 mg PO QDAY PRN allergy symptoms 06/27/24 06/27/24 Previous Rx's ?Medication ?Instructions ?Recorded atorvastatin 20 mg tablet 20 mg PO HS #30 tabs 06/29/24 acetaminophen 300 mg-codeine 30 mg 2 tab PO Q8H PRN pain #20 tabs 07/12/24 tablet sulfamethoxazole 800 1 tab PO Q12H 7 days #14 tabs 08/27/24 mg-trimethoprim 160 mg tablet Allergies Allergy/AdvReac Type Severity Reaction Status Date / Time No Known Allergies Allergy Verified 08/27/24 18:38 Review of Systems Review of Systems Systems Reviewed: All systems reviewed, normal except as documented ED Exam General Limitations: Present no limitations General appearance: Present alert and in no apparent distress Head Head exam: Present atraumatic Eye Eye exam: Present normal appearance, PERRL and EOMI ENT ENT exam: Present normal exam, normal oropharynx and mucous membranes moist Neck Neck exam: Present normal inspection, full ROM and trachea midline Chest Chest inspection: Present normal inspection and symmetric chest wall rise Respiratory Respiratory exam: Present normal lung sounds bilaterally Cardiovascular Cardiovascular exam: Present regular rate, normal rhythm and normal heart sounds Abdominal Exam Abdominal exam: Present soft; Absent distention, tenderness or guarding Extremities Exam Extremities exam: Present normal inspection and full ROM Back Exam Back exam: Present normal inspection and full ROM; Absent CVA tenderness (R) or CVA tenderness (L) Neurological Exam Neurological exam: Present alert and oriented X3 Psychiatric Psychiatric exam: Present normal affect and normal mood Skin Skin exam: Present warm, dry, intact and normal color Course Quality Measures none Orders Category Date Time Status CT abdomen pelvis wo con Stat Exams 08/27/24 19:20 Completed CBC Stat Lab 08/27/24 19:24 Completed CMP [Comprehensive Metabolic Panel] Stat Lab 08/27/24 19:24 Completed Lipase Stat Lab 08/27/24 19:24 Completed Urinalysis, C/S if Indicated Stat Lab 08/27/24 19:40 Completed Urine Culture Stat Lab 08/27/24 19:40 Received Ketorolac Inj [Toradol Inj] Med 08/27/24 19:20 Discontinued 60 mg IM X1 ONE Ondansetron Odt [Zofran Odt] Med 08/27/24 19:20 Discontinued 4 mg PO X1 ONE Trimethoprim/Sulfa 160/800 Ds [Bactrim Ds] Med 08/27/24 23:01 Discontinued 1 tab PO X1 ONE Vital Signs Vital signs: Vital Signs Temperature 98.0 F 08/27/24 19:11 Pulse Rate 78 08/27/24 19:11 Respiratory Rate 17 08/27/24 19:11 Blood Pressure 153/94 H 08/27/24 19:11 Pulse Oximetry (%) 97 08/27/24 19:11 Oxygen Delivery Method Room Air 08/27/24 19:11 Back Pain / Injury MDM Narrative MDM Narrative:: 59-year-old female with history of hypertension, hyperlipidemia, anxiety, and diabetes here today with a 2-day history of right-sided low back pain. She states initially she had mild nausea and had 1 or 2 episodes of emesis. That has since resolved. She denies any diarrhea. Denies any fevers or chills. She denies any falls or injuries. Has no rectal paresthesias. No loss of strength. She is self ambulating. She has no other acute complaints or concerns. On exam patient is nontoxic-appearing and in no visible signs of stress. She has no CVA tenderness. Abdomen soft and supple without guarding or tenderness. Vital signs are stable. Workup here reveals no leukocytosis or anemia. Metabolic panel reveals no derangement. Urinalysis reveals 10 erythrocytes and 19 leukocytes. I believe she does have a UTI. CT of the abdomen pelvis reveals no acute abnormality. Patient was given a dose of Bactrim DS here. She will be discharged with a prescription for this. She agrees to increase oral hydration with provide antibiotic as prescribed. Follow-up in clinic within the next week. Return as needed for any worsening emergent changes. Patient data External records reviewed:: None Clinical information provided by:: patient and none Social determinants that could affect healthcare access:: none Patient has the following chronic illnesses:: Diabetes, hypertension, anxiety How is presenting disease/condition affected by chronic disease/condition?: no chronic disease Evaluation data The following diagnostics were reviewed and interpreted by me:: lab results (cbc, cmp, are unremarkable. UA shows uti. ) and radiology exam(s) (CT of the abdomen pelvis is unremarkable. ) Lab and/or radiology exams considered but not ordered:: n/a Interpretation Summary: UTI Medications / Prescriptions Medications or Prescriptions considered but not ordered:: n/a Medication administrations:: Medication Administration History Discontinued Medications Ketorolac Tromethamine (Ketorolac Inj 60 Mg/2 Ml Vial) 60 mg IM X1 ONE Stop: 08/27/24 19:21 Last Admin: 08/27/24 19:51 Dose: 60 mg Documented By: Ondansetron HCl (Ondansetron Odt 4 Mg Tabrap) 4 mg PO X1 ONE; Protocol Stop: 08/27/24 19:21 Last Admin: 08/27/24 19:50 Dose: 4 mg Documented By: Trimethoprim/Sulfamethoxazole (Trimethoprim/Sulfa 160/800 Ds Tablet) 1 tab PO X1 ONE Stop: 08/27/24 23:02 See above Consultations Consultation(s) initiated? (list below): No Diagnosis Most likely diagnosis given after review of the tests above:: UTI Admission Indicated Admission indicated?: not indicated Admission Request Was there a request for admission?: No Disposition Plan Disposition Plan: Discharge Discharge Attestation Discharge Attestation: The patient and all family members were given an opportunity to ask questions and understood the discharge instructions. Discharge instructions specifically effects, indications for sooner follow up or return to the emergency department, and the expected course of current diagnosis. Patient condition: Stable Discharge Plan Plan Patient Disposition: HOME (Self Care) Patient condition on transfer: Stable Prescriptions/Referrals Prescriptions/Med Rec: New sulfamethoxazole-trimethoprim 800-160 mg tablet 1 tab PO Q12H 7 Days Qty: 14 0RF No Action omeprazole 40 mg capsule,delayed release(DR/EC) 40 mg PO HS Patient Comments: TAKE 1 CAPSULE BY MOUTH ONCE DAILY 30 MINUTES BEFORE MORNING MEAL losartan-hydrochlorothiazide 100-25 mg tablet 1 tab PO QDAY Patient Comments: TAKE 1 TABLET BY MOUTH ONCE DAILY sertraline 25 mg tablet 25 mg PO HS Patient Comments: TAKE 1 TABLET BY MOUTH ONCE DAILY hydroxyzine HCl 25 mg tablet 25 mg PO HS Patient Comments: TAKE 1 TABLET BY MOUTH ONCE DAILY AT BEDTIME NEEDED Ozempic 0.25 mg or 0.5 mg (2 mg/3 mL) pen injector 0.5 mg SUBCUT QWEEK Patient Comments: INJECT 0.5 MG SUBCUTANEOUSLY ONCE A WEEK dapagliflozin propanediol [Farxiga] 10 mg tablet 10 mg PO DAILY Patient Comments: TAKE 1 TABLET BY MOUTH ONCE DAILY loratadine 10 mg tablet 10 mg PO QDAY PRN (Reason: allergy symptoms) atorvastatin 20 mg tablet 20 mg PO HS Qty: 30 0RF Patient Comments: TAKE 1 TABLET BY MOUTH ONCE DAILY FOR 90 DAYS acetaminophen-codeine 300-30 mg tablet 2 tab PO Q8H MDD 6 PRN (Reason: pain) Qty: 20 0RF Referrals: Wilfrid Cole MD [Primary Care Provider] - In 1 week Problem List Clinical Impression: UTI (urinary tract infection) Patient/Caregiver Discharge Instructions Education Materials: ED CYSTITIS Female Adult Additional Instructions: - Increase oral hydration. - Use the provided antibiotic every 12 hours. - Use Tylenol and ibuprofen as needed for comfort. - Please follow-up with your clinic within the next week for recheck. - Return to the emergency room at anytime for any worsening or emergent changes. Print Language: [place] Stand Alone Forms: Laisha Moses Info., Patient Portal Info Letter
[2024-08-27] MEDS: TRIMETHOPRIM/SULFA 160/800 DS TABLET 1 TAB PO (23:34)
== END 2024-08-27 23:38 | disposition home or self-care (01) ==
PROVIDERS: Physician Assistant; Emergency Provider Emergency Medicine; PCP Family Medicine
DX: N39.0 Urinary tract infection, site not specified (principal)
CPT/HCPCS: 36415; 74176; 80053; 81001; 83690; 85025; 87086; 96372; 99283; J1885; Q0162; A9270

== ENCOUNTER → 2024-12-04 | Outpatient (CLI) | payer BC, SELFPAY ==
--- NOTE | 2024-12-04 | XR_ITS ---
Examination: Breast ultrasound, unilateral, left complete Date and time of exam: December 04, 2024, 0850 hours INDICATIONS: Outside mammogram 11 mm left breast mass subareolar 1 month ago Technique: Real-time pandya scale ultrasonographic imaging performed left breast including all 4 quadrants as well as nipple retroareolar and axillary region. Findings: 11:00 cyst 3 x 4 mm No solid nodules IMPRESSION: BI-RADS Category 2: Benign findings
== END | disposition home or self-care (01) ==
PROVIDERS: PCP Family Medicine; Referring Provider Family Medicine; Visit Provider Family Medicine
DX: N63.42 Unspecified lump in left breast, subareolar (principal)
CPT/HCPCS: 76641

== ENCOUNTER → 2024-12-05 | Outpatient (CLI) | payer BC, SELFPAY ==
--- NOTE | 2024-12-05 07:52 | XR_ITS ---
Examination: Diagnostic digital mammography, unilateral, left Computer aided detection 3-D breast Tomosynthesis, unilateral Date and time of exam: December 05, 2024, 0934 hours INDICATIONS: Outside mammogram 10/15/2024 mass in the left breast 11 mm retroareolar region Technique: Nonmagnified MLO, CC views of the left breast have been obtained, reconstructed from 3-D Tomosynthesis images. R2 computer aided detection program utilized for evaluation of suspicious masses and/or abnormal calcifications. 3-D Tomosynthesis images obtained. Findings: Scattered areas of fibroglandular density. Benign calcifications Focal asymmetry remains in the retroareolar region left breast probably benign Impression: BI-RADS category 3: Probably benign findings Recommend 1 additional 6-month left mammogram follow-up
== END | disposition home or self-care (01) ==
PROVIDERS: PCP Family Medicine; Referring Provider Family Medicine; Visit Provider Family Medicine
DX: R92.332 Mammographic heterogeneous density, left breast (principal)
CPT/HCPCS: 77061; 77065; G0279